=== PATIENT | female | born 1935 | race Caucasian/White ===

== ENCOUNTER 2017-11-18 09:00 | Inpatient (IN) | payer MEDICARE, OTHER ==
[2017-11-18 10:46] LABS: BASO % 0 % (0-3); EOS # 0.1 x10^3/uL (0.0-0.7); EOS % 0 % (0-3); HEMATOCRIT 23.5 % (36.0-47.0); HEMOGLOBIN 7.2 g/dL (12.0-15.5); LYMPH # 24.4 x10^3/uL (1.0-4.8); LYMPH % 82 % (24-48); MEAN CORPUSCULAR HEMOGLOBIN 29 pg (25-35); MEAN CORPUSCULAR HGB CONC 31 g/dL (31-37); MEAN CORPUSCULAR VOLUME 96 fL (79-100); MONO # 0.6 x10^3/uL (0.0-1.1); MONO % 2 % (0-9); NEUT # 4.7 x10^3uL (1.8-7.7); NEUT % 16 % (31-73); PLATELET COUNT 193 x10^3/uL (140-400); RED BLOOD COUNT 2.46 x10^6/uL (3.50-5.40); RED CELL DISTRIBUTION WIDTH 17.2 % (11.5-14.5); WHITE BLOOD COUNT 29.8 x10^3/uL (4.0-11.0)
[2017-11-18 10:52] LABS: ADD MAN DIFF? YES
[2017-11-18 10:55] LABS: ANION GAP 8 (6-14); BLOOD UREA NITROGEN 42 mg/dL (7-20); CALCIUM 9.2 mg/dL (8.5-10.1); CARBON DIOXIDE 36 mmol/L (21-32); CHLORIDE 97 mmol/L (98-107); CREATININE 5.8 mg/dL (0.6-1.0); GLUCOSE 134 mg/dL (70-99); POTASSIUM 4.3 mmol/L (3.5-5.1); SODIUM 141 mmol/L (136-145)
[2017-11-18 11:00] LABS: ALBUMIN 3.3 g/dL (3.4-5.0); ALK PHOS 49 U/L (46-116); ALT (SGPT) 12 U/L (14-59); AST (SGOT) 15 U/L (15-37); DIRECT BILIRUBIN 0.2 mg/dL (0.0-0.2); TOTAL PROTEIN 6.6 g/dL (6.4-8.2)
[2017-11-18] MEDS ORDERED: ONDANSETRON PF 4 MG/2 ML VIAL. IV (11:45)
[2017-11-18] MEDS ORDERED: ACETAMINOPHEN 500 MG TABLET PO ×2 (11:45→13:15)
[2017-11-18 12:07] LABS: % EOS 1 % (0-5); % LYMPHS 73 % (24-48); % SEGS 26 % (35-66)
[2017-11-18 12:08] LABS: PLT ESTIMATE ADEQUATE (ADEQUATE)
[2017-11-18 12:09] LABS: ANISOCYTOSIS PRESENT; POIKILOCYTOSIS PRESENT
[2017-11-18] MEDS: FOLIC/VIT B COMP W-C (RENAL) TABLET. PO (12:30)
[2017-11-18 12:32] LABS: INR 1.5 (0.8-1.1); PROTHROMBIN TIME PATIENT 17.5 SEC (11.7-14.0)
[2017-11-18] MEDS ORDERED: IV NORMAL SALINE 1000ML BAG 1,000 ML IV (13:00)
[2017-11-18] MEDS ORDERED: ALBUMIN HUMAN 25% 200 ML IV (13:00)
[2017-11-18] MEDS ORDERED: DIALYSIS PATIENT. MC ×2 (13:15)
[2017-11-18] MEDS ORDERED: diphenhydrAMINE 50 MG/ML VIAL IV ×2 (13:15)
[2017-11-18 15:26] LABS: IMMEDIATE SPIN CROSSMATCH 1 1
[2017-11-18] MEDS: PANTOPRAZOLE 40 MG TABLET.DR. PO (18:27)
[2017-11-18] MEDS: TORSEMIDE 20 MG TABLET. PO (18:27)
[2017-11-18] MEDS: DIGOXIN 250 MCG TABLET. PO (18:27)
[2017-11-18] MEDS: ASPIRIN CHEWABLE 81 MG TABLET. PO (18:27)
[2017-11-18] MEDS: LISINOPRIL 10 MG TABLET PO (18:28)
[2017-11-18] MEDS: CARVEDILOL 3.125 MG TABLET. PO (18:28)
[2017-11-18] MEDS: CALCIUM ACETATE 667 MG CAPSULE PO (18:29)
[2017-11-18] MEDS: WARFARIN 7.5 MG TABLET. PO (18:29)
[2017-11-18] MEDS: ATORVASTATIN CALCIUM 20 MG TABLET PO (21:02)
[2017-11-19 04:35] LABS: ADD MAN DIFF? NO
[2017-11-19 04:57] LABS: BASO % 0 % (0-3); EOS # 0.2 x10^3/uL (0.0-0.7); EOS % 1 % (0-3); HEMATOCRIT 24.3 % (36.0-47.0); HEMOGLOBIN 7.5 g/dL (12.0-15.5); LYMPH # 19.6 x10^3/uL (1.0-4.8); LYMPH % 81 % (24-48); MEAN CORPUSCULAR HEMOGLOBIN 29 pg (25-35); MEAN CORPUSCULAR HGB CONC 31 g/dL (31-37); MEAN CORPUSCULAR VOLUME 95 fL (79-100); MONO # 0.5 x10^3/uL (0.0-1.1); MONO % 2 % (0-9); NEUT # 3.9 x10^3uL (1.8-7.7); NEUT % 16 % (31-73); PLATELET COUNT 173 x10^3/uL (140-400); RED BLOOD COUNT 2.56 x10^6/uL (3.50-5.40); RED CELL DISTRIBUTION WIDTH 16.5 % (11.5-14.5); WHITE BLOOD COUNT 24.2 x10^3/uL (4.0-11.0)
[2017-11-19 05:04] LABS: INR 1.5 (0.8-1.1)
[2017-11-19 06:02] LABS: ANION GAP 8 (6-14); BLOOD UREA NITROGEN 21 mg/dL (7-20); CALCIUM 8.7 mg/dL (8.5-10.1); CARBON DIOXIDE 32 mmol/L (21-32); CHLORIDE 102 mmol/L (98-107); CREATININE 3.6 mg/dL (0.6-1.0); GFR 12.2; GLUCOSE 99 mg/dL (70-99); SODIUM 142 mmol/L (136-145)
[2017-11-19 07:30] LABS: HEP B SURFACE ABDY Reactive (.); HEP B SURFACE AG Negative (Negative)
[2017-11-19] MEDS: ASPIRIN CHEWABLE 81 MG TABLET. PO (09:07)
[2017-11-19] MEDS: LISINOPRIL 10 MG TABLET PO (09:07)
[2017-11-19] MEDS: CARVEDILOL 3.125 MG TABLET. PO (09:08)
[2017-11-19] MEDS: PANTOPRAZOLE 40 MG TABLET.DR. PO (09:08)
[2017-11-19] MEDS: CALCIUM ACETATE 667 MG CAPSULE PO (09:08)
[2017-11-19] MEDS: TORSEMIDE 20 MG TABLET. PO (09:08)
[2017-11-19] MEDS: DIGOXIN 250 MCG TABLET. PO (09:08)
== END 2017-11-19 11:25 | disposition home or self-care (01) | DRG 314 ==
LOC: ER 09:00 → 5 SOUTH 10:20
PROC: 30233N1 Transfusion of Nonautologous Red Blood Cells into Peripheral Vein, Percutaneous Approach (ICD-10-PCS; principal; 2017-11-18)
DX: T82.838A Hemorrhage due to vascular prosthetic devices, implants and grafts, initial encounter (principal); N18.6 End stage renal disease; I12.0 Hypertensive chronic kidney disease with stage 5 chronic kidney disease or end stage renal disease; D64.9 Anemia, unspecified; D62 Acute posthemorrhagic anemia; Z85.6 Personal history of leukemia; Z86.73 Personal history of transient ischemic attack (TIA), and cerebral infarction without residual deficits; Z99.2 Dependence on renal dialysis; Z88.8 Allergy status to other drugs, medicaments and biological substances; Z85.9 Personal history of malignant neoplasm, unspecified
CPT/HCPCS: 36415; 80048; 80076; 85007; 85025; 85610; 86705; 86706; 86850; 86900; 86901; 86920; 87340; 93971; P9016

== ENCOUNTER 2018-05-27 12:18 | Inpatient (IN) | payer MEDICARE, OTHER ==
[2018-05-27 13:25] LABS: ADD MAN DIFF? NO
[2018-05-27 13:30] LABS: BASO # 0.1 x10^3/uL (0.0-0.2); BASO % 0 % (0-3); EOS # 0.2 x10^3/uL (0.0-0.7); EOS % 1 % (0-3); LYMPH # 21.5 x10^3/uL (1.0-4.8); LYMPH % 89 % (24-48); MEAN CORPUSCULAR HEMOGLOBIN 32 pg (25-35); MEAN CORPUSCULAR HGB CONC 31 g/dL (31-37); MEAN CORPUSCULAR VOLUME 101 fL (79-100); MONO # 0.3 x10^3/uL (0.0-1.1); MONO % 1 % (0-9); NEUT # 2.2 x10^3uL (1.8-7.7); NEUT % 9 % (31-73); PLATELET COUNT 130 x10^3/uL (140-400); RED BLOOD COUNT 1.83 x10^6/uL (3.50-5.40); RED CELL DISTRIBUTION WIDTH 21.8 % (11.5-14.5); WHITE BLOOD COUNT 24.2 x10^3/uL (4.0-11.0)
[2018-05-27 13:37] LABS: HEMATOCRIT 18.5 % (36.0-47.0); HEMOGLOBIN 5.8 g/dL (12.0-15.5)
[2018-05-27 13:44] LABS: ANION GAP 10 (6-14); BLOOD UREA NITROGEN 34 mg/dL (7-20); BUN/CREATININE RATIO 7 (6-20); CALCIUM 8.2 mg/dL (8.5-10.1); CARBON DIOXIDE 32 mmol/L (21-32); CHLORIDE 97 mmol/L (98-107); CREATININE 5.1 mg/dL (0.6-1.0); GFR 8.1; GLUCOSE 148 mg/dL (70-99); POTASSIUM 3.9 mmol/L (3.5-5.1); SODIUM 139 mmol/L (136-145)
[2018-05-27 13:50] LABS: ALBUMIN 3.4 g/dL (3.4-5.0); ALBUMIN/GLOBULIN RATIO 1.3 (1.0-1.7); ALK PHOS 46 U/L (46-116); ALT (SGPT) 16 U/L (14-59); AST (SGOT) 13 U/L (15-37); TOTAL BILIRUBIN 0.4 mg/dL (0.2-1.0); TOTAL PROTEIN 6.1 g/dL (6.4-8.2)
[2018-05-27 13:54] LABS: TROPONINI < 0.017 ng/mL (0.000-0.055)
[2018-05-27] MEDS ORDERED: ACETAMINOPHEN 325 MG TABLET. PO (14:30)
[2018-05-27] MEDS ORDERED: ONDANSETRON PF 4 MG/2 ML VIAL. IV (14:30)
[2018-05-27] MEDS ORDERED: fentaNYL PF VIAL 100 MCG/2 ML VIAL IV (14:30)
[2018-05-27 14:32] LABS: % LYMPHS 89 % (24-48); % SEGS 11 % (35-66)
[2018-05-27 14:34] LABS: ANISOCYTOSIS MOD; PLT ESTIMATE ADEQUATE (ADEQUATE); POLYCHROMASIA SLIGHT
[2018-05-27 17:16] LABS: IMMEDIATE SPIN CROSSMATCH 1
[2018-05-27 23:15] LABS: HEMOGLOBIN 6.4 g/dL (12.0-15.5)
[2018-05-28 00:47] LABS: IMMEDIATE SPIN CROSSMATCH 1 2
[2018-05-28 08:00] LABS: HEMOGLOBIN 7.1 g/dL (12.0-15.5)
[2018-05-28 09:21] LABS: % SAT IRON 18 % (15-34); IRON,SERUM 41 ug/dL (50-170)
[2018-05-28 09:34] LABS: FERRITIN 577 ng/mL (8-252)
[2018-05-28 09:41] LABS: RETIC COUNT 1.8 % (0.5-2.5)
[2018-05-29 13:30] LABS: VITAMIN-B12 293 pg/mL (247-911)
[2018-05-29 13:31] LABS: FOLATE 18.21 ng/ml (3.2-20.0)
== END 2018-05-28 12:30 | disposition home or self-care (01) | DRG 291 ==
LOC: 5 SOUTH 15:41 → ER 12:18 → 5 SOUTH 15:36
PROC: 30233N1 Transfusion of Nonautologous Red Blood Cells into Peripheral Vein, Percutaneous Approach (ICD-10-PCS; principal; 2018-05-28)
DX: I13.2 Hypertensive heart and chronic kidney disease with heart failure and with stage 5 chronic kidney disease, or end stage renal disease (principal); N18.6 End stage renal disease; C91.10 Chronic lymphocytic leukemia of B-cell type not having achieved remission; Z99.2 Dependence on renal dialysis; I50.9 Heart failure, unspecified; I48.91 Unspecified atrial fibrillation; E78.5 Hyperlipidemia, unspecified; Z82.49 Family history of ischemic heart disease and other diseases of the circulatory system; D63.1 Anemia in chronic kidney disease; Z86.73 Personal history of transient ischemic attack (TIA), and cerebral infarction without residual deficits; D47.2 Monoclonal gammopathy; D69.6 Thrombocytopenia, unspecified; E78.00 Pure hypercholesterolemia, unspecified; Z90.710 Acquired absence of both cervix and uterus
CPT/HCPCS: 36415; 71045; 80053; 82607; 82728; 82746; 83540; 83550; 84484; 85007; 85018; 85025; 85045; 86850; 86900; 86901; 86920; 93005; 99285; 99285-25; P9016

== ENCOUNTER 2019-07-27 19:14 | Emergency (ER) | payer MEDICARE, OTHER ==
[~2019-07-27] VITALS: Ht 157.5 cm; Wt 65.8 kg
[~2019-07-27 19:14] MED LIST: ASPI-630 PO; ATOR20TA PO; CALC667T4 PO; CARV3.12 PO; DIGO250T PO; FOLI1CAP11 PO; LISI10TA2 PO; OMEP20TA8 PO; TORS20TA2 PO; WARF1TAB69 PO; WARF4TAB68 PO; WARF6TAB47 PO
[2019-07-27] MEDS ORDERED: dilTIAZem IV PUSH 25 MG/5 ML VIAL IVP ONE (20:00)
[2019-07-27] MEDS ORDERED: IPRATRPIUM/ALBUTEROL 0.5/2.5MG 3 ML NEBU. NEB SCH (20:00)
[2019-07-27 20:11] LABS: BASO # 0.1 x10^3/uL (0.0-0.2); BASO % 0 % (0-3); EOS # 0.2 x10^3/uL (0.0-0.7); EOS % 1 % (0-3); HEMATOCRIT 25.5 % (36.0-47.0); HEMOGLOBIN 7.7 g/dL (12.0-15.5); LYMPH # 30.2 x10^3/uL (1.0-4.8); LYMPH % 90 % (24-48); MEAN CORPUSCULAR HEMOGLOBIN 29 pg (25-35); MEAN CORPUSCULAR HGB CONC 30 g/dL (31-37); MEAN CORPUSCULAR VOLUME 96 fL (79-100); MONO # 0.6 x10^3/uL (0.0-1.1); MONO % 2 % (0-9); NEUT # 2.7 x10^3/uL (1.8-7.7); NEUT % 8 % (31-73); PLATELET COUNT 143 x10^3/uL (140-400); RED BLOOD COUNT 2.66 x10^6/uL (3.50-5.40); RED CELL DISTRIBUTION WIDTH 18.5 % (11.5-14.5); WHITE BLOOD COUNT 33.7 x10^3/uL (4.0-11.0)
--- NOTE | 2019-07-27 20:11 | RAD ---
Single view chest dated 07/27/2019. Comparison made to 05/27/2018. CLINICAL INDICATION: Cough and shortness of breath. FINDINGS: Single upright portable exam performed. Heart and mediastinal contours are stable. There is tortuosity of the thoracic aorta, unchanged. Lungs are somewhat hyperinflated but otherwise clear. No consolidation or pleural effusion. No pneumothorax. Degenerative change of the right shoulder joint with probable full-thickness chronic rotator cuff tear. IMPRESSION: No acute radiographic abnormality. Stable findings compared to 05/27/2018. Electronically signed by: Reji Pratt MD (07/27/2019 8:09 PM) [facility]
[2019-07-27 20:15] LABS: CALCIUM 8.9 mg/dL (8.5-10.1); CREATININE 3.6 mg/dL (0.6-1.0); GFR 12.1; POTASSIUM 4.1 mmol/L (3.5-5.1)
[2019-07-27] MEDS ORDERED: HYDROcodone/APAP 5/325MG 1 TAB TABLET PO PRN (20:15)
[2019-07-27] MEDS ORDERED: ACETAMINOPHEN 500 MG TABLET PO PRN (20:15)
[2019-07-27] MEDS ORDERED: diphenhydrAMINE HCL 25 MG CAPSULE PO PRN (20:15)
[2019-07-27] MEDS ORDERED: guaiFENesin DM 200MG/20MG 10 ML SYRUP PO PRN (20:15)
[2019-07-27 20:22] LABS: ALBUMIN 3.4 g/dL (3.4-5.0); MAGNESIUM 2.2 mg/dL (1.8-2.4); TOTAL BILIRUBIN 0.4 mg/dL (0.2-1.0); TOTAL PROTEIN 6.8 g/dL (6.4-8.2)
--- NOTE | 2019-07-27 20:22 | PDOC1 ---
History and Physical Date of Admission Date of Admission DATE: 07/27/19 TIME: 20:14 Identification/Chief Complaint Chief Complaint cough x 3 weeks, back hurts when she coughs,s ent by PCP office bec of CXR proven PNA Source Source: Caregiver, Chart review, Patient History of Present Illness History of Present Illness 84 YO FEMALE, wHO looks younger than stated age, accompanied by dtr who is an RN at DR Chandler's office (pt's PCP). She was sent in for CXR proven RLL PNA. Pt has been feeling sick x 3 weeks, productive cough,no fevers, denies soa, CXR shows the RLL PNA, Got doxy PO at PCP office, She is also no RVR a fib, known chronic a fib on warf with last INR at PCP 3. She follows with DR Simmons, on digoxin etc at home and is compliant She also is ESRD on HD MWF and got HD today SHe is non toxic appearing She also has CLL, known pt DR Crisostomo, baseline WBC is 37 or so, dtr tells me but at PCP it was 40s LAbs are still rolling WIll admit and do CAP coverage, control the RVR and resume hD sessions. Past Medical History Cardiovascular: AFIB, HTN, Hyperlipidemia Heme/Onc: Cancer, Other (CLL) Musculoskeletal: low back pain Renal/: Chronic renal failure Past Surgical History Past Surgical History: Other Family History Family History: No Significant Social History Smoke: No ALCOHOL: none Drugs: None Current Medications Current Medications Current Medications Diltiazem HCl (Cardizem Iv Push) 15 mg 1X ONCE IVP Last administered on 07/27/19at 20:02; Start 07/27/19 at 20:00; Stop 07/27/19 at 20:01; Status DC Ceftriaxone Sodium (Rocephin) 1 gm 1X ONCE IVP ; Start 07/27/19 at 20:15; Stop 07/27/19 at 20:16; Status UNV Diltiazem HCl 125 mg/Dextrose 125 ml @ 5 mls/hr 1X ONCE IV ; Start 07/27/19 at 20:15; Stop 07/28/19 at 21:14; Status UNV Albuterol/ Ipratropium (Duoneb) 3 ml RTQID NEB ; Start 07/28/19 at 08:00; Status UNV Acetaminophen (Tylenol) 500 mg PRN Q6HRS PRN PO MILD PAIN / TEMP; Start 07/27/19 at 20:15; Status UNV Benzonatate (Tessalon Perle) 100 mg QHE797 PO ; Start 07/27/19 at 21:00; Status UNV Guaifenesin (Robitussin Dm) 10 ml PRN Q6HRS PRN PO COUGH; Start 07/27/19 at 20:15; Status UNV Ceftriaxone Sodium (Rocephin) 1 gm Q24H IVP ; Start 07/27/19 at 20:15; Status UNV Azithromycin (Zithromax) 500 mg 1X ONCE PO ; Start 07/27/19 at 20:15; Stop 07/27/19 at 20:16; Status UNV Azithromycin (Zithromax) 250 mg DAILY PO ; Start 07/28/19 at 09:00; Status UNV Active Scripts Active Lipitor (Atorvastatin Calcium) 20 Mg Tablet 20 Mg PO HS Reported Coumadin (Warfarin Sodium) 4 Mg Tablet 2 Tab PO DAILY Torsemide 20 Mg Tablet 2 Tab PO DAILY Calcium Acetate 667 Mg Tablet 3 Tab PO BID Digoxin 250 Mcg Tablet 0.5 Tab PO DAILY Coreg (Carvedilol) 3.125 Mg Tablet 3.125 Mg PO BIDWMEALS Omeprazole 20 Mg Tablet.dr 20 Mg PO DAILY Allergies Allergies: Coded Allergies: ibuprofen (Verified Allergy, Severe, 09/14/16) ROS Review of System as per HPI, derrick cough and back pain, the rest 14 pt neg Physical Exam General: Alert, Oriented X3, Cooperative, No acute distress HEENT: Atraumatic, PERRLA, EOMI Lungs: Normal air movement, Other (equal air entry, no crackles or wheezing, but diminshed at bases, dullness ot percussion at Rt base derrick) Heart: S1S2, no thrills, no rubs, irregularly irregular Cardiovascular: S1, S2 Breasts: Normal, Rt breast nml w/o mass, Lt breast nml w/o mass, Nipples normal Abdomen: Normal bowel sounds, Soft, No tenderness, No hepatosplenomegaly, No masses Rectal Exam: not examined PELVIC: Nml ext genitalia Extremities: No clubbing, No cyanosis, No edema, Normal pulses, No tenderness/swelling Skin: No rashes, No breakdown, No significant lesion Neuro: Normal gait, Normal speech, Strength at 5/5 X4 ext, Normal tone, Sensation intact, Cranial nerves 3-12 NL, Reflexes 2+ Psych/Mental Status: Mental status NL, Mood NL Vitals Vitals Vital Signs Date Time Temp Pulse Resp B/P (MAP) Pulse Ox O2 Delivery O2 Flow Rate FiO2 07/27/19 20:02 112 101/58 07/27/19 19:16 98.4 22 96 Room Air 98.4 Labs Labs Laboratory Tests Test 07/27/19 19:48 White Blood Count 33.7 x10^3/uL (4.0-11.0) Red Blood Count 2.66 x10^6/uL (3.50-5.40) Hemoglobin 7.7 g/dL (12.0-15.5) Hematocrit 25.5 % (36.0-47.0) Mean Corpuscular Volume 96 fL (79-100) Mean Corpuscular Hemoglobin 29 pg (25-35) Mean Corpuscular Hemoglobin Concent 30 g/dL (31-37) Red Cell Distribution Width 18.5 % (11.5-14.5) Platelet Count 143 x10^3/uL (140-400) Neutrophils (%) (Auto) 8 % (31-73) Lymphocytes (%) (Auto) 90 % (24-48) Monocytes (%) (Auto) 2 % (0-9) Eosinophils (%) (Auto) 1 % (0-3) Basophils (%) (Auto) 0 % (0-3) Neutrophils # (Auto) 2.7 x10^3/uL (1.8-7.7) Lymphocytes # (Auto) 30.2 x10^3/uL (1.0-4.8) Monocytes # (Auto) 0.6 x10^3/uL (0.0-1.1) Eosinophils # (Auto) 0.2 x10^3/uL (0.0-0.7) Basophils # (Auto) 0.1 x10^3/uL (0.0-0.2) Laboratory Tests Test 07/27/19 19:48 White Blood Count 33.7 x10^3/uL (4.0-11.0) Red Blood Count 2.66 x10^6/uL (3.50-5.40) Hemoglobin 7.7 g/dL (12.0-15.5) Hematocrit 25.5 % (36.0-47.0) Mean Corpuscular Volume 96 fL (79-100) Mean Corpuscular Hemoglobin 29 pg (25-35) Mean Corpuscular Hemoglobin Concent 30 g/dL (31-37) Red Cell Distribution Width 18.5 % (11.5-14.5) Platelet Count 143 x10^3/uL (140-400) Neutrophils (%) (Auto) 8 % (31-73) Lymphocytes (%) (Auto) 90 % (24-48) Monocytes (%) (Auto) 2 % (0-9) Eosinophils (%) (Auto) 1 % (0-3) Basophils (%) (Auto) 0 % (0-3) Neutrophils # (Auto) 2.7 x10^3/uL (1.8-7.7) Lymphocytes # (Auto) 30.2 x10^3/uL (1.0-4.8) Monocytes # (Auto) 0.6 x10^3/uL (0.0-1.1) Eosinophils # (Auto) 0.2 x10^3/uL (0.0-0.7) Basophils # (Auto) 0.1 x10^3/uL (0.0-0.2) VTE Prophylaxis Ordered VTE Prophylaxis Devices: Yes VTE Pharmacological Prophylaxi: Yes Assessment/Plan Assessment/Plan CAP A fib RVR - hx chronic a fib on meds Therapeuric INR reported at the office ESDR On HD mWF AOCD CLL - baseline WBC 30s per dtr, last one was 40s at PCP in the background of active infection - known to dr crisostomo FULL CODE Acute on chronic back pain - hx back pain, trial lidoderm, coughing hurts her back - supprotive meds PLAN: CVC admit RAte control cardizem gtt prn, cards consult Resume home meds REnal HD diet HD per renal - renal consult CAp coverage and other supprotive meds, nebs, tylenol, robitussin etc NO need to consult heme onc for now FULL CODE Seen at ER Await as labs come out dw dtr at bedside Trial lidoerm patch, heating pad etc CHRISTA CRYSTAL MD Jul 27, 2019 20:22
[2019-07-27 20:26] LABS: PROTHROMBIN TIME PATIENT 41.5 SEC (11.7-14.0)
[2019-07-27 20:29] LABS: D-DIMER 0.35 ug/mlFEU (0.00-0.50)
[2019-07-27] MEDS ORDERED: cefTRIAXone IV Push 1 GM VIAL. IVP ONE (20:30)
[2019-07-27] MEDS ORDERED: AZITHROMYCIN 250 MG TABLET. PO ONE (20:30)
[2019-07-27] MEDS ORDERED: dilTIAZem INJ 125 MG in IV DEXTROSE 5% 100ML 100 ML IV PRN (20:30)
[2019-07-27 20:53] VITALS: BP 107/57
[2019-07-27] MEDS ORDERED: ATORVASTATIN CALCIUM 20 MG TABLET PO SCH (21:00)
[2019-07-27] MEDS ORDERED: BENZONATATE 100 MG CAPSULE. PO SCH (21:00)
[2019-07-27] MEDS ORDERED: PATCH REMOVAL. MC SCH (21:00)
[2019-07-27] MEDS ORDERED: BENZ100C PO (21:06)
[2019-07-27] MEDS ORDERED: AZIT250T PO (21:06)
--- NOTE | 2019-07-27 21:06 | PHYS DOC ---
Past Medical History Past Medical History: A-Fib, Cancer, CHF, High Cholesterol, Hypertension, Renal Failure, Other Additional Past Medical Histor: CLL Past Surgical History: Hysterectomy, Other Additional Past Surgical Histo: ALAN FISTULA Alcohol Use: Rarely Drug Use: None Adult General Chief Complaint Chief Complaint: I have pneumonia" HPI HPI Patient is a 84 year old female who presents with patient with complaining of pneumonia. Patient states she has had productive cough with clear sputum that gradually getting better. Patient had a chest x-ray at his primary care physician office today and was told that she has pneumonia in the emergency room IV antibiotic. She denies shortness of breath, fever and chills, chest pain, sick contact, generalized weakness. Patient [place] [address] that increased to 43,000 in blood test done yesterday by primary care physician. Patient has history of chronic renal failure on dialysis and dialyzes today. Patient also has history of atrial physician according and was told to decrease the dose of Coumadin because of elevation of INR in the blood test done yesterday. Review of Systems Review of Systems Constitutional: Denies fever or chills [] Eyes: Denies change in visual acuity, redness, or eye pain [] HENT: Denies nasal congestion or sore throat [] Respiratory: Denies shortness of breath reports cough [] Cardiovascular: No additional information not addressed in HPI [] GI: Denies abdominal pain, nausea, vomiting, bloody stools or diarrhea [] : Denies dysuria or hematuria [] Musculoskeletal: Denies back pain or joint pain [] Integument: Denies rash or skin lesions [] Neurologic: Denies headache, focal weakness or sensory changes [] Endocrine: Denies polyuria or polydipsia [] All other systems were reviewed and found to be within normal limits, except as documented in this note. Current Medications Current Medications Current Medications Medications (Trade) Dose Ordered Sig/Kiara Start Time Stop Time Status Last Admin Dose Admin Acetaminophen (Tylenol) 500 mg PRN Q6HRS PRN 07/27/19 20:15 07/27/19 21:25 DC Acetaminophen/ Hydrocodone Bitart (Lortab 5/325) 1 tab PRN Q4HRS PRN 07/27/19 20:15 07/27/19 21:25 DC Albuterol/ Ipratropium (Duoneb) 3 ml RTQID 9/27/19 20:00 07/27/19 21:25 DC Atorvastatin Calcium (Lipitor) 20 mg HS 07/27/19 21:00 07/27/19 21:25 DC Azithromycin (Zithromax) 250 mg DAILY 07/28/19 09:00 07/27/19 21:25 DC Benzonatate (Tessalon Perle) 100 mg [id number] 07/27/19 21:00 07/27/19 21:25 DC Calcium Acetate (Phoslo) 2,001 mg TIDWMEALS 07/28/19 08:00 07/27/19 21:25 DC Carvedilol (Coreg) 3.125 mg BIDWMEALS 07/28/19 08:00 07/27/19 21:25 DC Ceftriaxone Sodium (Rocephin) 1 gm Q24H 07/28/19 21:00 07/27/19 21:25 DC Digoxin (Lanoxin) 125 mcg DAILY 07/28/19 09:00 07/27/19 21:25 DC Diltiazem HCl (Cardizem Iv Push) 15 mg 1X ONCE 07/27/19 20:00 07/27/19 20:01 DC 07/27/19 20:02 15 MG Diltiazem HCl 125 mg/Dextrose 125 ml @ 5 mls/hr CONT PRN 07/27/19 20:30 07/27/19 21:25 DC Diphenhydramine HCl (Benadryl) 25 mg PRN QHS PRN 07/27/19 20:15 07/27/19 21:25 DC Guaifenesin (Robitussin Dm) 10 ml PRN Q6HRS PRN 07/27/19 20:15 07/27/19 21:25 DC Lidocaine (Lidoderm) 1 patch DAILY 07/28/19 09:00 07/27/19 21:25 DC Miscellaneous (Lidoderm Patch Removal) 1 ea QHS 07/27/19 21:00 07/27/19 21:25 DC Pantoprazole Sodium (Protonix) 40 mg DAILYAC 07/28/19 07:30 07/27/19 21:25 DC Torsemide (Demadex) 40 mg DAILY 07/28/19 09:00 07/27/19 21:25 DC Warfarin Sodium (Coumadin Per Pharmacy) 1 each PRN DAILY PRN 07/27/19 21:15 07/27/19 21:25 DC Warfarin Sodium (Coumadin) 8 mg DAILY 07/28/19 09:00 UNV Allergies Allergies Allergies Coded Allergies Type Severity Reaction Last Updated Verified ibuprofen Allergy Severe 09/14/16 Yes Physical Exam Physical Exam Constitutional: Well developed, well nourished, no distress, non-toxic appearance. [] HENT: Normocephalic, atraumatic. Eyes: PERRLA, EOMI, conjunctiva normal, no discharge. [] Neck: Normal range of motion, no tenderness, supple, no stridor. [] Cardiovascular: Irregularly irregular rhythm with tachycardia, systolic murmur [] Lungs & Thorax: Bilateral breath sounds clear to auscultation [] Abdomen: Bowel sounds normal, soft, no tenderness, no masses, no pulsatile masses. [] Skin: Warm, dry, no erythema, no rash. [] Back: No tenderness, no CVA tenderness. [] Extremities: No tenderness, no cyanosis, no clubbing, ROM intact, no edema. [] Neurologic: Alert and oriented X 3, no focal deficits noted. [] Psychologic: Affect normal, judgement normal, mood normal. [] Current Patient Data Vital Signs Vital Signs Date Time Temp Pulse Resp B/P (MAP) Pulse Ox O2 Delivery O2 Flow Rate FiO2 07/27/19 20:53 92 22 107/57 (74) 92 Room Air 07/27/19 19:16 98.4 98.4 Lab Values Laboratory Tests Test 07/27/19 19:48 White Blood Count 33.7 x10^3/uL (4.0-11.0) H Red Blood Count 2.66 x10^6/uL (3.50-5.40) L Hemoglobin 7.7 g/dL (12.0-15.5) L Hematocrit 25.5 % (36.0-47.0) L Mean Corpuscular Volume 96 fL (79-100) Mean Corpuscular Hemoglobin 29 pg (25-35) Mean Corpuscular Hemoglobin Concent 30 g/dL (31-37) L Red Cell Distribution Width 18.5 % (11.5-14.5) H Platelet Count 143 x10^3/uL (140-400) Neutrophils (%) (Auto) 8 % (31-73) L Lymphocytes (%) (Auto) 90 % (24-48) H Monocytes (%) (Auto) 2 % (0-9) Eosinophils (%) (Auto) 1 % (0-3) Basophils (%) (Auto) 0 % (0-3) Neutrophils # (Auto) 2.7 x10^3/uL (1.8-7.7) Lymphocytes # (Auto) 30.2 x10^3/uL (1.0-4.8) H Monocytes # (Auto) 0.6 x10^3/uL (0.0-1.1) Eosinophils # (Auto) 0.2 x10^3/uL (0.0-0.7) Basophils # (Auto) 0.1 x10^3/uL (0.0-0.2) Segmented Neutrophils % 5 % (35-66) L Lymphocytes % 94 % (24-48) H Basophils % 1 % (0-3) Platelet Estimate Adequate (ADEQUATE) Prothrombin Time 41.5 SEC (11.7-14.0) H Prothrombin Time INR 4.3 (0.8-1.1) H D-Dimer (Makayla) 0.35 ug/mlFEU (0.00-0.50) Sodium Level 139 mmol/L (136-145) Potassium Level 4.1 mmol/L (3.5-5.1) Chloride Level 100 mmol/L (98-107) Carbon Dioxide Level 31 mmol/L (21-32) Anion Gap 8 (6-14) Blood Urea Nitrogen 22 mg/dL (7-20) H Creatinine 3.6 mg/dL (0.6-1.0) H Estimated GFR (Cockcroft-Gault) 12.1 BUN/Creatinine Ratio 6 (6-20) Glucose Level 187 mg/dL (70-99) H Lactic Acid Level 2.1 mmol/L (0.4-2.0) H Calcium Level 8.9 mg/dL (8.5-10.1) Magnesium Level 2.2 mg/dL (1.8-2.4) Total Bilirubin 0.4 mg/dL (0.2-1.0) Aspartate Amino Transferase (AST) 18 U/L (15-37) Alanine Aminotransferase (ALT) 11 U/L (14-59) L Alkaline Phosphatase 69 U/L (46-116) Creatine Kinase 29 U/L (26-192) Troponin I Quantitative < 0.017 ng/mL (0.000-0.055) OZ-Tob-R-Type Natriuretic Peptide > 55756 pg/mL (0-449) H Total Protein 6.8 g/dL (6.4-8.2) Albumin 3.4 g/dL (3.4-5.0) Albumin/Globulin Ratio 1.0 (1.0-1.7) Lipase 227 U/L (73-393) Laboratory Tests 07/27/19 19:48 Laboratory Tests 07/27/19 19:48 EKG EKG EKG interpreted by me. EKG at 195 showed atrial fibrillation at rate of 95, low-voltage QRS, poor R-wave progress in anteroseptal leads, no acute ST and T- wave elevation Radiology/Procedures Radiology/Procedures [][facility] [address] [place] [address] IMAGING REPORT Signed PATIENT: PRUDENCIO CARPENTER ACCOUNT: [id number] : 1935 LOCATION: ER AGE: 84 SEX: F EXAM STATUS: REG ER ORD. PHYSICIAN: CHEVY EDWARDS MD REASON: cough and shortness of breath PROCEDURE: PORTABLE CHEST 1V Single view chest dated 07/27/2019. Comparison made to 05/27/2018. CLINICAL INDICATION: Cough and shortness of breath. FINDINGS: Single upright portable exam performed. Heart and mediastinal contours are stable. There is tortuosity of the thoracic aorta, unchanged. Lungs are somewhat hyperinflated but otherwise clear. No consolidation or pleural effusion. No pneumothorax. Degenerative change of the right shoulder joint with probable full-thickness chronic rotator cuff tear. IMPRESSION: No acute radiographic abnormality. Stable findings compared to 05/27/2018. Electronically signed by: Reji Pratt MD (07/27/2019 8:09 PM) [facility] DICTATED and SIGNED BY: REJI PRATT MD DATE: 07/27/192008 Course & Med Decision Making Course & Med Decision Making Pertinent Labs and Imaging studies reviewed. (See chart for details) Evaluation of patient in ER showed 84-year-old female patient was sent from her primary care physician office because of pneumonia. Patient had unremarkable physical exam with O2 sat of 97% at room air in ER. Chest x-ray did not show infiltration. Labs showed white count of 32,000 with history of CLL with the same range of white count recently. Patient had INR of 4.3. Patient treated with IV Rocephin in ER but did not get IV fluid because of history of chronic renal failure on dialysis. Patient had elevation of lactic acid at 2.1 and I offered patient admission. Patient and her daughter refused admission and wanted to follow up with her primary care physician tomorrow and get another dose of Rocephin. Prescription for Zithromax and Tessalon was given and patient was advised to follow with her primary care physician tomorrow and return to ER if not getting better. Dragon Disclaimer Dragon Disclaimer This electronic medical record was generated, in whole or in part, using a voice recognition dictation system. Departure Departure Impression: Primary Impression: Atrial fibrillation with RVR Additional Impressions: Elevated lactic acid level Cough CLL (chronic lymphocytic leukemia) Chronic kidney disease with end stage renal failure on dialysis Coumadin toxicity Bronchitis Disposition: HOME, SELF-CARE (at 2103) Condition: IMPROVED Referrals: MELISSA CHAUDHARY MD (PCP) Patient Instructions: Atrial Fibrillation Additional Instructions: Do not take Coumadin tonight Follow-up with your primary care physician tomorrow Return to ER if not getting better Scripts Azithromycin (ZITHROMAX) 250 Mg Tablet 1 PKG PO UD for infection, #1 PKG Prov: CHEVY EDWARDS MD 07/27/19 Benzonatate (TESSALON PERLE) 100 Mg Capsule 1 CAP PO TID for cough, #21 CAP Prov: CHEVY EDWARDS MD 07/27/19 Problem Qualifiers Additional Impressions: Coumadin toxicity Encounter type: sequela Injury intent: accidental or unintentional Qualified Codes: T45.511S - Poisoning by anticoagulants, accidental (unintentional), sequela CHEVY EDWARDS MD Jul 27, 2019 21:06
[2019-07-27 22:49] LABS: % BASOS 1 % (0-3); % LYMPHS 94 % (24-48); % SEGS 5 % (35-66)
[2019-07-27 22:50] LABS: PLT ESTIMATE ADEQUATE (ADEQUATE)
[2019-07-28] MEDS ORDERED: PANTOPRAZOLE 40 MG TABLET.DR. PO SCH (07:30)
[2019-07-28] MEDS ORDERED: CARVEDILOL 3.125 MG TABLET. PO SCH (08:00)
[2019-07-28] MEDS ORDERED: CALCIUM ACETATE 667 MG CAPSULE PO SCH (08:00)
[2019-07-28] MEDS ORDERED: WARFARIN 4 MG TABLET. PO SCH (09:00)
[2019-07-28] MEDS ORDERED: DIGOXIN 125 MCG TABLET. PO SCH (09:00)
[2019-07-28] MEDS ORDERED: AZITHROMYCIN 250 MG TABLET. PO SCH (09:00)
[2019-07-28] MEDS ORDERED: TORSEMIDE 20 MG TABLET. PO SCH (09:00)
[2019-07-28] MEDS ORDERED: LIDOCAINE (700MG/PATCH) PATCH. TD SCH (09:00)
--- NOTE | 2019-07-28 10:17 | EKG ---
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
[2019-07-28] MEDS ORDERED: cefTRIAXone IV Push 1 GM VIAL. IVP SCH (21:00)
== END 2019-07-27 21:11 | disposition home or self-care (01) ==
LOC: ER 19:14
DX: T45.511A Poisoning by anticoagulants, accidental (unintentional), initial encounter (principal); I13.2 Hypertensive heart and chronic kidney disease with heart failure and with stage 5 chronic kidney disease, or end stage renal disease; I50.9 Heart failure, unspecified; N18.6 End stage renal disease; I48.2 Chronic atrial fibrillation; C91.10 Chronic lymphocytic leukemia of B-cell type not having achieved remission; J40 Bronchitis, not specified as acute or chronic; R74.0 Nonspecific elevation of levels of transaminase and lactic acid dehydrogenase [LDH]; Z99.2 Dependence on renal dialysis; E78.00 Pure hypercholesterolemia, unspecified; Z90.710 Acquired absence of both cervix and uterus; Z88.6 Allergy status to analgesic agent; Y92.89 Other specified places as the place of occurrence of the external cause
CPT/HCPCS: 36415; 71045; 80053; 82550; 83605; 83690; 83735; 83880; 84484; 85007; 85025; 85379; 85610; 87040; 93005; 96374; 96375; 99285; J0696; J3490; Q0144

== ENCOUNTER 2019-08-28 10:00 | Inpatient (IN) | payer MEDICARE, OTHER ==
[2019-08-28] VITALS (26 sets, daily range): BP systolic 84–115; BP diastolic 43–72
[~2019-08-28] VITALS: Ht 157.5 cm; Wt 71.9 kg
[2019-08-28] MEDS: SUCRALFATE 1 GM TABLET. PO SCH ×2 (07:30→17:39)
[~2019-08-28 10:00] MED LIST changes: +AZIT250T PO; +BENZ100C PO
[2019-08-28 10:50] LABS: BASO % 0 % (0-3); EOS # 0.1 x10^3/uL (0.0-0.7); EOS % 1 % (0-3); LYMPH # 8.9 x10^3/uL (1.0-4.8); LYMPH % 75 % (24-48); MEAN CORPUSCULAR HEMOGLOBIN 29 pg (25-35); MEAN CORPUSCULAR HGB CONC 30 g/dL (31-37); MEAN CORPUSCULAR VOLUME 94 fL (79-100); MONO # 0.4 x10^3/uL (0.0-1.1); MONO % 3 % (0-9); NEUT # 2.4 x10^3/uL (1.8-7.7); NEUT % 20 % (31-73); PLATELET COUNT 148 x10^3/uL (140-400); RED BLOOD COUNT 2.11 x10^6/uL (3.50-5.40); RED CELL DISTRIBUTION WIDTH 18.4 % (11.5-14.5); WHITE BLOOD COUNT 11.9 x10^3/uL (4.0-11.0)
[2019-08-28 10:54] LABS: HEMATOCRIT 19.8 % (36.0-47.0)
[2019-08-28 11:00] LABS: CALCIUM 8.5 mg/dL (8.5-10.1); GFR 8.3; POTASSIUM 5.2 mmol/L (3.5-5.1)
[2019-08-28] MEDS ORDERED: dilTIAZem IV PUSH 25 MG/5 ML VIAL IVP ONE (11:00)
[2019-08-28 11:06] LABS: ALBUMIN 3.1 g/dL (3.4-5.0); ALBUMIN/GLOBULIN RATIO 0.9 (1.0-1.7); TOTAL BILIRUBIN 0.3 mg/dL (0.2-1.0); TOTAL PROTEIN 6.5 g/dL (6.4-8.2)
--- NOTE | 2019-08-28 11:07 | RAD ---
CHEST PA LATERAL History: Cough. Recent pneumonia. Comparison: July 27, 2019 Findings: Linear bibasilar atelectasis or scarring, unchanged. Hyperinflation. Cardiomegaly, unchanged. No pneumothorax. No pleural effusion. No consolidation. Impression: 1. Linear bibasilar atelectasis or scarring, unchanged. 2. Hyperinflation. 3. Cardiomegaly, unchanged. Electronically signed by: Praveen Will DO (08/28/2019 11:04 AM) [facility]
--- NOTE | 2019-08-28 11:19 | PHYS DOC ---
Past Medical History Past Medical History: A-Fib, Cancer, CHF, High Cholesterol, Hypertension, Renal Failure, Other Additional Past Medical Histor: CLL Past Surgical History: Hysterectomy, Other Additional Past Surgical Histo: ALAN FISTULA Alcohol Use: Rarely Drug Use: None Adult General Chief Complaint Chief Complaint: ABNORMAL LABS HPI HPI Patient is an 84-year-old female who presents with report of abnormal INR. Patient's primary provider had checked an INR yesterday and called patient this morning to tell her that INR was greater than 10. Patient has also been having some increasing fatigue and mild shortness of breath with exertion. Patient reportedly has history of significant anemia requiring transfusion. Patient is also on dialysis and next scheduled dialysis is tomorrow morning. She denies any chest pain or shortness of breath at rest.[] Review of Systems Review of Systems Constitutional: Denies fever or chills [] Respiratory: Complains of cough and exertional shortness of breath [] Cardiovascular: No additional information not addressed in HPI [] GI: Denies abdominal pain, nausea, vomiting or diarrhea [] Integument: Denies rash or skin lesions [] Neurologic: Denies headache, focal weakness or sensory changes [] All other systems were reviewed and found to be within normal limits, except as documented in this note. Current Medications Current Medications Current Medications Medications (Trade) Dose Ordered Sig/[facility] Start Time Stop Time Status Last Admin Dose Admin Diltiazem HCl (Cardizem Iv Push) 10 mg 1X ONCE 08/28/19 11:00 08/28/19 11:01 DC 08/28/19 11:43 10 MG Diltiazem HCl 125 mg/Dextrose 125 ml @ 5 mls/hr 1X ONCE 08/28/19 11:30 08/29/19 12:29 08/28/19 11:43 5 MLS/HR Phytonadione (Mephyton Oral Soln) 10 mg 1X ONCE 08/28/19 11:30 08/28/19 11:31 DC 08/28/19 11:41 10 MG Allergies Allergies Allergies Coded Allergies Type Severity Reaction Last Updated Verified ibuprofen Allergy Severe 09/14/16 Yes Physical Exam Physical Exam Constitutional: Well developed, well nourished, no acute distress, non-toxic appearance. [] HENT: Normocephalic, atraumatic, bilateral external ears normal, oropharynx moist, no oral exudates, nose normal. [] Eyes: PERRLA, EOMI, conjunctiva pale, no discharge. [] Neck: Normal range of motion, no tenderness, supple. [] Cardiovascular: Tachycardic rate with irregular rhythm[] Lungs & Thorax: Fine rhonchi are noted bilaterally to auscultation [] Abdomen: Bowel sounds normal, soft, no tenderness. [] Skin: Warm, dry, no erythema, no rash. [] Extremities: No tenderness, no cyanosis, no clubbing, ROM intact. [] Neurologic: Alert and oriented X 3, no focal deficits noted. [] Current Patient Data Vital Signs Vital Signs Date Time Temp Pulse Resp B/P (MAP) Pulse Ox O2 Delivery O2 Flow Rate FiO2 08/28/19 12:37 98.0 107 18 99/55 98.0 08/28/19 11:48 100 Room Air Lab Values Laboratory Tests Test 08/28/19 10:32 White Blood Count 11.9 x10^3/uL (4.0-11.0) H Red Blood Count 2.11 x10^6/uL (3.50-5.40) L Hemoglobin 6.0 g/dL (12.0-15.5) *L Hematocrit 19.8 % (36.0-47.0) *L Mean Corpuscular Volume 94 fL (79-100) Mean Corpuscular Hemoglobin 29 pg (25-35) Mean Corpuscular Hemoglobin Concent 30 g/dL (31-37) L Red Cell Distribution Width 18.4 % (11.5-14.5) H Platelet Count 148 x10^3/uL (140-400) Neutrophils (%) (Auto) 20 % (31-73) L Lymphocytes (%) (Auto) 75 % (24-48) H Monocytes (%) (Auto) 3 % (0-9) Eosinophils (%) (Auto) 1 % (0-3) Basophils (%) (Auto) 0 % (0-3) Neutrophils # (Auto) 2.4 x10^3/uL (1.8-7.7) Lymphocytes # (Auto) 8.9 x10^3/uL (1.0-4.8) H Monocytes # (Auto) 0.4 x10^3/uL (0.0-1.1) Eosinophils # (Auto) 0.1 x10^3/uL (0.0-0.7) Basophils # (Auto) 0.0 x10^3/uL (0.0-0.2) Segmented Neutrophils % 17 % (35-66) L Band Neutrophils % 1 % (0-9) Lymphocytes % 80 % (24-48) H Eosinophils % 2 % (0-5) Smudge Cells Present Platelet Estimate Adequate (ADEQUATE) Prothrombin Time 99.0 SEC (11.7-14.0) H Prothrombin Time INR 12.8 (0.8-1.1) *H Sodium Level 139 mmol/L (136-145) Potassium Level 5.2 mmol/L (3.5-5.1) H Chloride Level 103 mmol/L (98-107) Carbon Dioxide Level 25 mmol/L (21-32) Anion Gap 11 (6-14) Blood Urea Nitrogen 50 mg/dL (7-20) H Creatinine 5.0 mg/dL (0.6-1.0) H Estimated GFR (Cockcroft-Gault) 8.3 BUN/Creatinine Ratio 10 (6-20) Glucose Level 134 mg/dL (70-99) H Calcium Level 8.5 mg/dL (8.5-10.1) Total Bilirubin 0.3 mg/dL (0.2-1.0) Aspartate Amino Transferase (AST) 15 U/L (15-37) Alanine Aminotransferase (ALT) 18 U/L (14-59) Alkaline Phosphatase 73 U/L (46-116) Total Protein 6.5 g/dL (6.4-8.2) Albumin 3.1 g/dL (3.4-5.0) L Albumin/Globulin Ratio 0.9 (1.0-1.7) L Laboratory Tests 08/28/19 10:32 Laboratory Tests 08/28/19 10:32 EKG EKG [] Interpretation Time: EKG demonstrates atrial fibrillation with rapid ventricular response of 126 Radiology/Procedures Radiology/Procedures [] Impressions: PROCEDURE: CHEST PA & LATERAL CHEST PA LATERAL History: Cough. Recent pneumonia. Comparison: July 27, 2019 Findings: Linear bibasilar atelectasis or scarring, unchanged. Hyperinflation. Cardiomegaly, unchanged. No pneumothorax. No pleural effusion. No consolidation. Impression: 1. Linear bibasilar atelectasis or scarring, unchanged. 2. Hyperinflation. 3. Cardiomegaly, unchanged. Electronically signed by: Praveen Will DO (08/28/2019 11:04 AM) [facility] Course & Med Decision Making Course & Med Decision Making Pertinent Labs and Imaging studies reviewed. (See chart for details) [] Dragon Disclaimer Dragon Disclaimer This electronic medical record was generated, in whole or in part, using a voice recognition dictation system. Departure Departure Impression: Primary Impression: Symptomatic anemia Additional Impressions: Atrial fibrillation with RVR Warfarin-induced coagulopathy Disposition: ADMITTED INPATIENT Admitting Physician: JOHN (Dr. Harley) Condition: IMPROVED Referrals: MELISSA CHAUDHARY MD (PCP) Problem Qualifiers ROBBI MÉNDEZ Jr., DO Aug 28, 2019 11:19
[2019-08-28] MEDS ORDERED: PHYTONADIONE 10 MG/ML ORAL SOLUTION. PO ONE (11:30)
[2019-08-28] MEDS ORDERED: dilTIAZem INJ 125 MG in IV DEXTROSE 5% 100ML 100 ML IV ONE (11:30)
[2019-08-28 12:18] LABS: % BANDS 1 % (0-9); % EOS 2 % (0-5); % LYMPHS 80 % (24-48); % SEGS 17 % (35-66); PLT ESTIMATE ADEQUATE (ADEQUATE); SMUDGE CELLS PRESENT
--- NOTE | 2019-08-28 13:12 | HP ---
ADMIT DATE: 08/28/2019 CHIEF COMPLAINT: Abnormal labs. HISTORY OF PRESENT ILLNESS: The patient is a pleasant 84-year-old female who is on Coumadin for AFib. I believe her primary care doctor checked her INR and it was 10. She was told to go to the ER. We checked, it is 12. I have discussed the case with the ER physician. We are going to give her a lot of vitamin K and fresh frozen plasma to see if we can get this reversed. It should also be noted that she is on dialysis and we will be consulting Nephrology. PAST MEDICAL HISTORY: AFib; CHF; end-stage renal disease, on dialysis; hypertension; hyperlipidemia; CLL; left arm fistula; hysterectomy; pneumonia. ALLERGIES: IBUPROFEN. FAMILY HISTORY: Coronary artery disease. SOCIAL HISTORY: She does not drink, smoke or take drugs. I think she lives with her daughter. Her daughter is a PALLIATIVE CARE NURSE who is here and seems to be very good support for her. MEDICATIONS: Reviewed, please refer to the MRAD. REVIEW OF SYSTEMS: GENERAL: She complains of weakness. SKIN: No bruising, hair changes or rashes. EYES: No blurred, double or loss of vision. NOSE AND THROAT: No history of nosebleeds, hoarseness or sore throat. HEART: No history of palpitations, chest pain or shortness of breath on exertion. LUNGS: Denies cough, hemoptysis, wheezing or shortness of breath. GASTROINTESTINAL: Denies changes in appetite, nausea, vomiting, diarrhea or constipation. GENITOURINARY: No history of frequency, urgency, hesitancy or nocturia. NEUROLOGIC: Denies history of numbness, tingling, tremor or weakness. PSYCHIATRIC: No history of panic, anxiety or depression. ENDOCRINE: No history of heat or cold intolerance, polyuria or polydipsia. EXTREMITIES: Denies muscle weakness, joint pain, pain on walking or stiffness. PHYSICAL EXAMINATION: VITALS: Within normal limits and are stable. GENERAL: No apparent distress. Alert and oriented. HEENT: Head is normocephalic, atraumatic, pupils were equally round and reactive to light and accommodation. NECK: Supple, no JVD, no thyromegaly was noted. LUNGS: Clear to auscultation in all lung street without rhonchi or wheezing. HEART: RRR, S1, S2 present. Peripheral pulses intact, no obvious murmurs were noted. ABDOMEN: Soft, nontender. Positive bowel sounds no organomegaly, normal bowel sounds. EXTREMITIES: She has a large left arm fistula. NEUROLOGIC: Normal speech, normal tone. A & O x 3, moves all extremities, no obvious focal deficits. PSYCHIATRIC: Normal affect, normal mood. Stable. SKIN: No ulcerations or rashes, good skin turgor, no jaundice. VASCULAR: Good capillary refill, neurovascular bundle appears to be intact. LABORATORY DATA: Hemoglobin 6. INR is 12.8. ASSESSMENT AND PLAN: Coumadin toxicity, anemia in an elderly female who is on dialysis and has multiple comorbidities. Given her history of chronic lymphocytic leukemia, we are going to consult Dr. Richards, consult Dr. Stoll for dialysis management. Transfuse 2 units of packed red blood cells and 2 units of fresh frozen plasma and give her 10 of vitamin K. Trend hemoglobin, trend her INR. Frequent labs, PT, OT and home meds. Prognosis is guarded. JEWELS TRAN DO DR: ZEFERINO/ling JOB#: [id number] / [id number]
--- NOTE | 2019-08-28 14:07 | PDOC2 ---
MARIEL TURNER SENIOR EMBEDDED SOFTWARE ENGINEER 08/28/19 1406: CARDIAC CONSULT DATE OF CONSULT Date of Consult DATE: 08/28/19 TIME: 13:53 REASON FOR CONSULT Reason for Consult: AFIB RVR REFERRING PHYSICIAN Referring Physician: Khushi SOURCE Source: Chart review, Patient HISTORY OF PRESENT ILLNESS HISTORY OF PRESENT ILLNESS This is a pleasant 84 yo female admitted for complains of elevated INR with feeling fatigue and MORNEO. Reports that her MORENO and fatigue just started about 2 days ago. No chest pain, palpitation but has been feeling dizzy. No obvious blood or dark stools. She does not produce any more urine and on HD for ESRD. She had her INR checked yesterday and eventually noted to be high and was advised to come to ED. She has had significant anemia before and had multiple blood transfusion with other significant comorbid conditions such as CLL and monoclonal gammopathy. She also has chronic AFIB and is taking coumadin with past CVA as well. No known CAD. She was hemoccult positive before and opted out of doing colonoscopy but did have a good EGD. She was treated recently about 3 weeks ago with antibiotics due to pneumonia and unclear what antibiotics used but also her coumadin was eventually increased with her INR not in therapeutic range. She came to ED and her HR was fast and on AFIB RVR. She is now getting transfusion with significant anemia. PAST MEDICAL HISTORY Cardiovascular: AFIB, CAD (mild CAD last noted via [facility] 2007), HTN, Hyperlipidemia, Valve insufficiency (severeTR) Pulmonary: Pneumonia CENTRAL NERVOUS SYSTEM: CVA GI: GERD Heme/Onc: Anemia NOS, Cancer (CLL), Other (chronic coumadin therapy) Musculoskeletal: Osteoarthritis Rheumatologic: No pertinent hx Infectious disease: No pertinent hx ENT: No pertinent hx Renal/: Chronic renal failure (ESRD) Endocrine: No pertinent hx Dermatology: No pertinent hx PAST SURGICAL HISTORY Past Surgical History: Hysterectomy, Other (LUE dialysis fistula) FAMILY HISTORY Family History: Coronary Artery Disease SOCIAL HISTORY Smoke: No ALCOHOL: none Drugs: None Lives: with Family CURRENT MEDICATIONS CURRENT MEDICATIONS Current Medications Medications (Trade) Dose Ordered Sig/Kiara Route PRN Reason Start Time Stop Time Status Last Admin Dose Admin Diltiazem HCl (Cardizem Iv Push) 10 mg 1X ONCE IVP 08/28/19 11:00 08/28/19 11:01 DC 08/28/19 11:43 Phytonadione (Mephyton Oral Soln) 10 mg 1X ONCE PO 08/28/19 11:30 08/28/19 11:31 DC 08/28/19 11:41 Diltiazem HCl 125 mg/Dextrose 125 ml @ 5 mls/hr 1X ONCE IV 08/28/19 11:30 08/29/19 12:29 08/28/19 11:43 ALLERGIES ALLERGIES: Coded Allergies: ibuprofen (Verified Allergy, Severe, 09/14/16) ROS Review of System 14 point ROS evaluated with pertinent positives noted per HPI PHYSICAL EXAM General: Alert, Oriented X3, Cooperative, No acute distress HEENT: Atraumatic, Mucous membr. moist/pink Lungs: Clear to auscultation, Normal air movement Heart: Other (AFIB rate controlled; 4/6 systolic murmur to LLS border) Abdomen: Soft, No tenderness Extremities: No cyanosis, Other (2+ bilateral LE pitting edema) Skin: No breakdown, No significant lesion Neuro: Normal speech, Sensation intact Psych/Mental Status: Mental status NL, Mood NL MUSCULOSKELETAL: Osteoarthritic changes both hands VITALS/I&O VITALS/I&O: Vital Signs Date Time Temp Pulse Resp B/P (MAP) Pulse Ox O2 Delivery O2 Flow Rate FiO2 08/28/19 13:43 97.5 102 18 104/52 97.5 08/28/19 11:48 100 Room Air LABS Lab: Laboratory Tests Test 08/28/19 10:32 White Blood Count 11.9 x10^3/uL (4.0-11.0) H Red Blood Count 2.11 x10^6/uL (3.50-5.40) L Hemoglobin 6.0 g/dL (12.0-15.5) *L Hematocrit 19.8 % (36.0-47.0) *L Mean Corpuscular Volume 94 fL (79-100) Mean Corpuscular Hemoglobin 29 pg (25-35) Mean Corpuscular Hemoglobin Concent 30 g/dL (31-37) L Red Cell Distribution Width 18.4 % (11.5-14.5) H Platelet Count 148 x10^3/uL (140-400) Neutrophils (%) (Auto) 20 % (31-73) L Lymphocytes (%) (Auto) 75 % (24-48) H Monocytes (%) (Auto) 3 % (0-9) Eosinophils (%) (Auto) 1 % (0-3) Basophils (%) (Auto) 0 % (0-3) Neutrophils # (Auto) 2.4 x10^3/uL (1.8-7.7) Lymphocytes # (Auto) 8.9 x10^3/uL (1.0-4.8) H Monocytes # (Auto) 0.4 x10^3/uL (0.0-1.1) Eosinophils # (Auto) 0.1 x10^3/uL (0.0-0.7) Basophils # (Auto) 0.0 x10^3/uL (0.0-0.2) Segmented Neutrophils % 17 % (35-66) L Band Neutrophils % 1 % (0-9) Lymphocytes % 80 % (24-48) H Eosinophils % 2 % (0-5) Smudge Cells Present Platelet Estimate Adequate (ADEQUATE) Prothrombin Time 99.0 SEC (11.7-14.0) H Prothrombin Time INR 12.8 (0.8-1.1) *H Sodium Level 139 mmol/L (136-145) Potassium Level 5.2 mmol/L (3.5-5.1) H Chloride Level 103 mmol/L (98-107) Carbon Dioxide Level 25 mmol/L (21-32) Anion Gap 11 (6-14) Blood Urea Nitrogen 50 mg/dL (7-20) H Creatinine 5.0 mg/dL (0.6-1.0) H Estimated GFR (Cockcroft-Gault) 8.3 BUN/Creatinine Ratio 10 (6-20) Glucose Level 134 mg/dL (70-99) H Calcium Level 8.5 mg/dL (8.5-10.1) Total Bilirubin 0.3 mg/dL (0.2-1.0) Aspartate Amino Transferase (AST) 15 U/L (15-37) Alanine Aminotransferase (ALT) 18 U/L (14-59) Alkaline Phosphatase 73 U/L (46-116) Total Protein 6.5 g/dL (6.4-8.2) Albumin 3.1 g/dL (3.4-5.0) L Albumin/Globulin Ratio 0.9 (1.0-1.7) L Laboratory Tests 08/28/19 10:32 Laboratory Tests 08/28/19 10:32 ECHOCARDIOGRAM ECHOCARDIOGRAM TTE: 04/20/2019 Severely dilated atria Moderately dilated right ventricle Left ventricular ejection fraction = 55% Aortic valve sclerosis without stenosis Mitral Valve: Non-specific thickening. No stenosis. Mild regurgitation. There is mitral annular calcification. Moderate to severe TV regurgitation. Pulmonary artery pressure = 39mmHg No significant pericardial effusion On the prior study of 02/11/12, PAP was 46 mmHg ASSESSMENT/PLAN ASSESSMENT/PLAN 1. Anemia of chronic disease requiring transfusion: Hgb 6 2. Severe coagulopathy with coumadin therapy: INR at 12.8. Likely from recent antibiotics with increased coumadin 3. CLL stage0 and monoclonal gammopathy undetermined: stable per daughter from recent hemonc visit 4. AFIB RVR: tachy mainly due to anemia. Chronic per hx 5. Hx of CVA 6. HTN: controlled but marginal 7. ESRD 8. Severe TR/biatrial enlargement: notable for RVH, EKG no acute changes by comparison. 9. Hx of CAD. Recommendations 1. Fluid off loading per HD 2. Vitamin K given in ED. [place] currently will transition to metoprolol as she is on coreg at home once transfusion is complete. Was on digoxin and was discontinued in the past mainly due to ESRD. Dig PRN for persistent RVR. 3. Hold coumadin. Continue home statin. She also takes baby ASA at home. 4. Will need outpt referral for LAAO 5. Follow up with Dr. Simmons as an outpt in cardiology 6. TSH and TTE. 7. Will check hemoccult, pt did opt out of colonoscopy in the past BRYAN MCGILL MD 08/28/19 1610: CARDIAC CONSULT ASSESSMENT/PLAN ASSESSMENT/PLAN Patient seen and examined. Agree with above nurse practitioner note. 84-year-old woman coming into the hospital in the setting of anemia and coagulopathy with warfarin use. Multiple comorbidities as noted Continue resuscitation with blood products. No further cardiac testing necessary. Supportive care for now. Consider outpatient appendage occlusion. Discussed with her primary care physician Dr. Chandler. MARIEL TURNER APRN Aug 28, 2019 14:06 BRYAN MCGILL MD Aug 28, 2019 16:10
[2019-08-28] MEDS ORDERED: DIGOXIN IV 500 MCG/2 ML AMPUL. IV PRN (15:00)
[2019-08-28] MEDS: METOPROLOL TART IMMED RELEASE 25 MG TABLET. PO SCH ×2 (15:00→22:59)
--- NOTE | 2019-08-28 16:00 | EKG ---
[facility] [address] [place] [address] Test Date: 2019-08-28 Test Time: 10:22:59 Pat Name: PRUDENCIO CARPENTER Department: Room: 254 1 Gender: F Insurance Investigator: : [id number] Requested By: ROBBI MÉNDEZ Order Number: [id number] Reading MD: Ronnell Beard MD Measurements Intervals [place] Rate: 126 P: [place]: QRS: 78 QRSD: 76 T: 1 QT: 306 QTc: 450 Interpretive Statements PROBABLE AFIB WITH RVR RBBB CANNOT RULE OUT INFERIOR ISCHEMIA Electronically Signed On 09-10-2019 9:39:16 HIM TECH by Ronnell Beard MD
[2019-08-28] MEDS ORDERED: MIDO2.5T PO (16:15)
[2019-08-28] MEDS ORDERED: SUCR1TAB35 PO (16:16)
[2019-08-28] MEDS ORDERED: ASPI81TA50 PO (16:18)
[2019-08-28] MEDS ORDERED: ACETAMINOPHEN 500 MG TABLET PO PRN (17:15)
[2019-08-28] MEDS ORDERED: ONDANSETRON PF 4 MG/2 ML VIAL. IVP PRN (17:15)
[2019-08-28] MEDS ORDERED: ACETAMINOPHEN/CODEINE 300/30MG TABLET. PO PRN (17:15)
[2019-08-28] MEDS: CALCIUM ACETATE 667 MG CAPSULE PO SCH (17:39)
[2019-08-28 20:22] LABS: PROTHROMBIN TIME PATIENT 27.8 SEC (11.7-14.0)
[2019-08-28] MEDS: ATORVASTATIN CALCIUM 20 MG TABLET PO SCH (22:58)
[2019-08-29] VITALS (14 sets, daily range): BP systolic 84–116; BP diastolic 50–73
[2019-08-29 03:32] LABS: FECAL OB PT POSITIVE (NEG)
[2019-08-29 04:33] LABS: BASO % 0 % (0-3); EOS # 0.1 x10^3/uL (0.0-0.7); EOS % 1 % (0-3); HEMATOCRIT 23.1 % (36.0-47.0); HEMOGLOBIN 7.4 g/dL (12.0-15.5); LYMPH # 10.2 x10^3/uL (1.0-4.8); LYMPH % 76 % (24-48); MEAN CORPUSCULAR HEMOGLOBIN 29 pg (25-35); MEAN CORPUSCULAR HGB CONC 32 g/dL (31-37); MEAN CORPUSCULAR VOLUME 91 fL (79-100); MONO # 0.3 x10^3/uL (0.0-1.1); MONO % 2 % (0-9); NEUT # 2.8 x10^3/uL (1.8-7.7); NEUT % 21 % (31-73); PLATELET COUNT 122 x10^3/uL (140-400); RED BLOOD COUNT 2.54 x10^6/uL (3.50-5.40); RED CELL DISTRIBUTION WIDTH 16.9 % (11.5-14.5); WHITE BLOOD COUNT 13.5 x10^3/uL (4.0-11.0)
[2019-08-29 04:50] LABS: CALCIUM 8.6 mg/dL (8.5-10.1); CREATININE 5.8 mg/dL (0.6-1.0); POTASSIUM 5.9 mmol/L (3.5-5.1)
[2019-08-29] MEDS: PANTOPRAZOLE 40 MG TABLET.DR. PO SCH (07:30)
[2019-08-29] MEDS: SUCRALFATE 1 GM TABLET. PO SCH ×2 (07:30→16:49)
[2019-08-29] MEDS: METOPROLOL TART IMMED RELEASE 25 MG TABLET. PO SCH ×2 (08:05→20:34)
[2019-08-29] MEDS ORDERED: METOPROLOL TARTRATE 5 MG/5 ML VIAL. IVP ONE ×3 (08:22→13:30)
[2019-08-29] MEDS: CALCIUM ACETATE 667 MG CAPSULE PO SCH ×2 (08:24→17:28)
[2019-08-29] MEDS ORDERED: IV NORMAL SALINE 1000ML BAG 1,000 ML IV PRN ×2 (08:31)
[2019-08-29] MEDS ORDERED: DIALYSIS PATIENT. MC PRN (08:45)
[2019-08-29] MEDS ORDERED: diphenhydrAMINE 50 MG/ML VIAL IV PRN ×2 (08:45)
[2019-08-29] MEDS ORDERED: ACETAMINOPHEN 500 MG TABLET PO PRN (08:45)
--- NOTE | 2019-08-29 09:35 | PDOC2 ---
CONSULT Date of Consult Date of Consult DATE: 08/29/19 TIME: 09:27 Reason for consultation: Elevated INR Consult: Hematology oncology, Dr. Clara Leon History of present illness: She is an 84-year-old female followed by Dr. Richards for history of CLL that has never required treatment with A. fib on Coumadin admitted with elevated INR and anemia with a hemoglobin to 6, fecal occult blood test is positive, she has had an EGD in October 2018 showing esophagitis and g astritis and is on a PPI, she declined colonoscopy at that time, and hemoglobin is up to 7.4 after transfusion. She also had some FFP and vitamin K and last INR was 2.6 down from 12.8. Coagulopathy is chronic, due to Coumadin, but worsened acutely, possibly by antibiotic she had recently, improved with FFP and vitamin K, associated with fecal occult blood test positivity and anemia. 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 History of stroke Hypertension Hyperlipidemia Coronary artery disease Severe TR End-stage renal disease on hemodialysis Past surgical history: Hysterectomy Left upper extremity fistula EGD October 2018 Allergies: Ibuprofen Medications: See attached list Social history: No tobacco or alcohol, lives with family Family history: No CLL, does have coronary artery disease Review of systems: Other than the anemia she denies 10 point review of systems this morning, does have some lower extremity edema Physical exam: Vitals reviewed Gen.: Elderly female, resting in bed, well-developed in no acute distress HEENT: mucous membranes moist, head normocephalic atraumatic Neck: Supple, no lymphadenopathy Lymph nodes: No palpable lymphadenopathy neck or axilla Lungs: Breathing comfortably w/o respiratory distress Abdomen: Soft, nontender, nondistended Extremities: No cyanosis, does have LE edema bilat pitting pretib Skin: No obvious rashes or skin breakdown, some bruising Neuro: Alert and oriented 3 Psych: Normal mood and affect Lab reviewed: White count 13.5, with 10,000 lymphocytes, hemoglobin 7.4 up from 6.0, platelets 122, MCV of 91 INR 12.8 down to 2.6 Creatinine 5.8 Fecal occult blood test positive Rads reviewed: Chest x-ray with linear atelectasis/scarring, hyperinflation, cardiomegaly Case discussed with: Patient, records [facility], including labs and radiology, please see note for summary details Assessment and Plan: 84-year-old female with history of CLL and A. fib on Coumadin admitted with anemia and supratherapeutic INR INR: Has had FFP and vitamin K, INR 2.6 on last check, Coumadin is on hold, not actively bleeding though fecal occult blood test positive Fecal occult blood test positive: Would continue PPI, had gastritis and es ophagitis on EGD in October, defer consult to GI as needed per primary, she has declined colonoscopy in the past A. fib: Would agree with considering watchman procedure and stopping Coumadin, defer to her cardiology team, aspirin currently on hold Anemia: Improved after transfusion, will check MGUS labs, ferritin and iron, B12 and methylmalonic acid, and reticulocyte and haptoglobin CLL: Has not needed treatment, Dr. Richards will return in the morning renal failure: Continues dialysis Disposition: After continued clinical improvement Thank you kindly for this consultation, please don't hesitate to call with any further questions. Past Medical History Cardiovascular: AFIB, CAD (mild CAD last noted via [facility] 2007), HTN, Hyperlipidemia, Valve insufficiency (severeTR) Pulmonary: Pneumonia CENTRAL NERVOUS SYSTEM: CVA GI: GERD Heme/Onc: Anemia NOS, Cancer (CLL), Other (chronic coumadin therapy) Musculoskeletal: Osteoarthritis Rheumatologic: No pertinent hx Infectious disease: No pertinent hx ENT: No pertinent hx Renal/: Chronic renal failure (ESRD) Endocrine: No pertinent hx Dermatology: No pertinent hx Past Surgical History Past Surgical History: Hysterectomy, Other (LUE dialysis fistula) Family History Family History: Coronary Artery Disease Social History No ALCOHOL: none Drugs: None Lives: with Family Current Problem List Problem List Problems Medical Problems: (1) Symptomatic anemia Status: Acute (2) Warfarin-induced coagulopathy Status: Acute Current Medications Current Medications Current Medications Diltiazem HCl (Cardizem Iv Push) 10 mg 1X ONCE IVP Last administered on 08/28/19at 11:43; Start 08/28/19 at 11:00; Stop 08/28/19 at 11:01; Status DC Phytonadione (Mephyton Oral Soln) 10 mg 1X ONCE PO Last administered on 08/28/19at 11:41; Start 08/28/19 at 11:30; Stop 08/28/19 at 11:31; Status DC Diltiazem HCl 125 mg/Dextrose 125 ml @ 5 mls/hr 1X ONCE IV Last administered on 08/28/19at 11:43; Start 08/28/19 at 11:30; Stop 08/29/19 at 07:54; Status DC Metoprolol Tartrate (Lopressor) 25 mg BID PO Last administered on 08/29/19at 08:05; Start 08/28/19 at 15:00 Digoxin (Lanoxin) 250 mcg PRN DAILY PRN IV SEE COMMENTS; Start 08/28/19 at 15:00 Acetaminophen (Tylenol) 500 mg PRN Q6HRS PRN PO QURESHI / TEMP; Start 08/28/19 at 17:15 Acetaminophen/ Codeine Phosphate (Tylenol #3) 1 tab PRN Q6HRS PRN PO PAIN; Start 08/28/19 at 17:15 Ondansetron HCl (Zofran) 4 mg PRN Q6HRS PRN IVP NAUSEA/VOMITING Last administered on 08/29/19at 01:38; Start 08/28/19 at 17:15 Atorvastatin Calcium (Lipitor) 20 mg HS PO Last administered on 08/28/19at 22:58; Start 08/28/19 at 21:00 Sucralfate (Carafate) 1 gm BIDAC PO Last administered on 08/28/19at 17:39; Start 08/28/19 at 07:30 Calcium Acetate (Phoslo) 2,001 mg BIDWMEALS PO Last administered on 08/29/19at 08:24; Start 08/28/19 at 18:00 Pantoprazole Sodium (Protonix) 40 mg DAILYAC PO ; Start 08/29/19 at 07:30 Metoprolol Tartrate (Lopressor Vial) 5 mg 1X ONCE IVP Last administered on 08/29/19at 08:24; Start 08/29/19 at 08:30; Stop 08/29/19 at 08:31; Status DC Metoprolol Tartrate (Lopressor Vial) 5 mg STK-MED ONCE IVP ; Start 08/29/19 at 08:22; Stop 08/29/19 at 08:22; Status DC Sodium Chloride 1,000 ml @ 1,000 mls/hr Q1H PRN IV hypotension; Start 08/29/19 at 08:31; Stop 08/29/19 at 14:30 Acetaminophen (Tylenol) 500 mg 1X PRN PRN PO MILD PAIN / TEMP; Start 08/29/19 at 08:45; Stop 08/30/19 at 08:44 Diphenhydramine HCl (Benadryl) 25 mg 1X PRN PRN IV ITCHING; Start 08/29/19 at 08:45; Stop 08/30/19 at 08:44 Diphenhydramine HCl (Benadryl) 25 mg 1X PRN PRN IV ITCHING; Start 08/29/19 at 08:45; Stop 08/30/19 at 08:44 Sodium Chloride 1,000 ml @ 400 mls/hr Q2H30M PRN IV PATENCY; Start 08/29/19 at 08:31; Stop 08/29/19 at 20:30 Info (PHARMACY MONITORING -- do not chart) 1 each PRN DAILY PRN MC SEE COMME NTS; Start 08/29/19 at 08:45 Active Scripts Active Lipitor (Atorvastatin Calcium) 20 Mg Tablet 20 Mg PO HS Reported Aspir-Low (Aspirin) 81 Mg Tablet. 1 Tab PO DAILY Carafate (Sucralfate) 1 Gm Tablet 1 Tab PO BIDAC 30 Days Midodrine Hcl 2.5 Mg Tablet 2.5 Mg PO BID Coumadin (Warfarin Sodium) 4 Mg Tablet 2 Tab PO DAILY Calcium Acetate 667 Mg Tablet 3 Tab PO BID Coreg (Carvedilol) 3.125 Mg Tablet 3.125 Mg PO BIDWMEALS Omeprazole 20 Mg Tablet. 20 Mg PO DAILY Allergies Allergies: Coded Allergies: ibuprofen (Verified Allergy, Severe, 09/14/16) Vitals VITALS Vital Signs Date Time Temp Pulse Resp B/P (MAP) Pulse Ox O2 Delivery O2 Flow Rate FiO2 08/29/19 08:24 126 116/70 08/29/19 07:17 97.5 18 95 Room Air 97.5 Labs Labs Laboratory Tests Test 08/28/19 10:32 08/28/19 19:58 08/29/19 01:45 08/29/19 03:50 White Blood Count 11.9 x10^3/uL (4.0-11.0) 13.5 x10^3/uL (4.0-11.0) Red Blood Count 2.11 x10^6/uL (3.50-5.40) 2.53 x10^6/uL (3.50-5.70) Hemoglobin 6.0 g/dL (12.0-15.5) 6.6 g/dL (12.0-15.5) 7.4 g/dL (12.0-15.5) Hematocrit 19.8 % (36.0-47.0) 23.1 % (36.0-47.0) Mean Corpuscular Volume 94 fL (79-100) 91 fL (79-100) Mean Corpuscular Hemoglobin 29 pg (25-35) 29 pg (25-35) Mean Corpuscular Hemoglobin Concent 30 g/dL (31-37) 32 g/dL (31-37) Red Cell Distribution Width 18.4 % (11.5-14.5) 16.9 % (11.5-14.5) Platelet Count 148 x10^3/uL (140-400) 122 x10^3/uL (140-400) Neutrophils (%) (Auto) 20 % (31-73) 21 % (31-73) Lymphocytes (%) (Auto) 75 % (24-48) 76 % (24-48) Monocytes (%) (Auto) 3 % (0-9) 2 % (0-9) Eosinophils (%) (Auto) 1 % (0-3) 1 % (0-3) Basophils (%) (Auto) 0 % (0-3) 0 % (0-3) Neutrophils # (Auto) 2.4 x10^3/uL (1.8-7.7) 2.8 x10^3/uL (1.8-7.7) Lymphocytes # (Auto) 8.9 x10^3/uL (1.0-4.8) 10.2 x10^3/uL (1.0-4.8) Monocytes # (Auto) 0.4 x10^3/uL (0.0-1.1) 0.3 x10^3/uL (0.0-1.1) Eosinophils # (Auto) 0.1 x10^3/uL (0.0-0.7) 0.1 x10^3/uL (0.0-0.7) Basophils # (Auto) 0.0 x10^3/uL (0.0-0.2) 0.0 x10^3/uL (0.0-0.2) Segmented Neutrophils % 17 % (35-66) Band Neutrophils % 1 % (0-9) Lymphocytes % 80 % (24-48) Eosinophils % 2 % (0-5) Smudge Cells Present Platelet Estimate Adequate (ADEQUATE) Prothrombin Time 99.0 SEC (11.7-14.0) 27.8 SEC (11.7-14.0) Prothromb Time International Ratio 12.8 (0.8-1.1) 2.6 (0.8-1.1) Sodium Level 139 mmol/L (136-145) 138 mmol/L (136-145) Potassium Level 5.2 mmol/L (3.5-5.1) 5.9 mmol/L (3.5-5.1) Chloride Level 103 mmol/L (98-107) 101 mmol/L (98-107) Carbon Dioxide Level 25 mmol/L (21-32) 23 mmol/L (21-32) Anion Gap 11 (6-14) 14 (6-14) Blood Urea Nitrogen 50 mg/dL (7-20) 62 mg/dL (7-20) Creatinine 5.0 mg/dL (0.6-1.0) 5.8 mg/dL (0.6-1.0) Estimated GFR (Cockcroft-Gault) 8.3 7.0 BUN/Creatinine Ratio 10 (6-20) Glucose Level 134 mg/dL (70-99) 125 mg/dL (70-99) Calcium Level 8.5 mg/dL (8.5-10.1) 8.6 mg/dL (8.5-10.1) Total Bilirubin 0.3 mg/dL (0.2-1.0) Aspartate Amino Transf (AST/SGOT) 15 U/L (15-37) Alanine Aminotransferase (ALT/SGPT) 18 U/L (14-59) Alkaline Phosphatase 73 U/L (46-116) Total Protein 6.5 g/dL (6.4-8.2) Albumin 3.1 g/dL (3.4-5.0) Albumin/Globulin Ratio 0.9 (1.0-1.7) Thyroid Stimulating Hormone (TSH) 2.978 uIU/mL (0.358-3.74) Stool Occult Blood Positive (NEG) Absolute Reticulocyte Count 0.079 x10^6/uL (0.020-0.120) Percent Reticulocyte Count 3.1 % (0.5-2.3) Immature Reticulocyte Fraction 0.62 (0.20-0.60) Iron Level 97 ug/dL (50-170) Total Iron Binding Capacity 249 ug/dL (250-450) Iron Saturation 39 % (15-34) Ferritin 743 ng/mL (8-252) Laboratory Tests Test 08/28/19 10:32 08/28/19 19:58 08/29/19 01:45 08/29/19 03:50 White Blood Count 11.9 x10^3/uL (4.0-11.0) 13.5 x10^3/uL (4.0-11.0) Red Blood Count 2.11 x10^6/uL (3.50-5.40) 2.53 x10^6/uL (3.50-5.70) Hemoglobin 6.0 g/dL (12.0-15.5) 6.6 g/dL (12.0-15.5) 7.4 g/dL (12.0-15.5) Hematocrit 19.8 % (36.0-47.0) 23.1 % (36.0-47.0) Mean Corpuscular Volume 94 fL (79-100) 91 fL (79-100) Mean Corpuscular Hemoglobin 29 pg (25-35) 29 pg (25-35) Mean Corpuscular Hemoglobin Concent 30 g/dL (31-37) 32 g/dL (31-37) Red Cell Distribution Width 18.4 % (11.5-14.5) 16.9 % (11.5-14.5) Platelet Count 148 x10^3/uL (140-400) 122 x10^3/uL (140-400) Neutrophils (%) (Auto) 20 % (31-73) 21 % (31-73) Lymphocytes (%) (Auto) 75 % (24-48) 76 % (24-48) Monocytes (%) (Auto) 3 % (0-9) 2 % (0-9) Eosinophils (%) (Auto) 1 % (0-3) 1 % (0-3) Basophils (%) (Auto) 0 % (0-3) 0 % (0-3) Neutrophils # (Auto) 2.4 x10^3/uL (1.8-7.7) 2.8 x10^3/uL (1.8-7.7) Lymphocytes # (Auto) 8.9 x10^3/uL (1.0-4.8) 10.2 x10^3/uL (1.0-4.8) Monocytes # (Auto) 0.4 x10^3/uL (0.0-1.1) 0.3 x10^3/uL (0.0-1.1) Eosinophils # (Auto) 0.1 x10^3/uL (0.0-0.7) 0.1 x10^3/uL (0.0-0.7) Basophils # (Auto) 0.0 x10^3/uL (0.0-0.2) 0.0 x10^3/uL (0.0-0.2) Segmented Neutrophils % 17 % (35-66) Band Neutrophils % 1 % (0-9) Lymphocytes % 80 % (24-48) Eosinophils % 2 % (0-5) Smudge Cells Present Platelet Estimate Adequate (ADEQUATE) Prothrombin Time 99.0 SEC (11.7-14.0) 27.8 SEC (11.7-14.0) Prothromb Time International Ratio 12.8 (0.8-1.1) 2.6 (0.8-1.1) Sodium Level 139 mmol/L (136-145) 138 mmol/L (136-145) Potassium Level 5.2 mmol/L (3.5-5.1) 5.9 mmol/L (3.5-5.1) Chloride Level 103 mmol/L (98-107) 101 mmol/L (98-107) Carbon Dioxide Level 25 mmol/L (21-32) 23 mmol/L (21-32) Anion Gap 11 (6-14) 14 (6-14) Blood Urea Nitrogen 50 mg/dL (7-20) 62 mg/dL (7-20) Creatinine 5.0 mg/dL (0.6-1.0) 5.8 mg/dL (0.6-1.0) Estimated GFR (Cockcroft-Gault) 8.3 7.0 BUN/Creatinine Ratio 10 (6-20) Glucose Level 134 mg/dL (70-99) 125 mg/dL (70-99) Calcium Level 8.5 mg/dL (8.5-10.1) 8.6 mg/dL (8.5-10.1) Total Bilirubin 0.3 mg/dL (0.2-1.0) Aspartate Amino Transf (AST/SGOT) 15 U/L (15-37) Alanine Aminotransferase (ALT/SGPT) 18 U/L (14-59) Alkaline Phosphatase 73 U/L (46-116) Total Protein 6.5 g/dL (6.4-8.2) Albumin 3.1 g/dL (3.4-5.0) Albumin/Globulin Ratio 0.9 (1.0-1.7) Thyroid Stimulating Hormone (TSH) 2.978 uIU/mL (0.358-3.74) Stool Occult Blood Positive (NEG) Absolute Reticulocyte Count 0.079 x10^6/uL (0.020-0.120) Percent Reticulocyte Count 3.1 % (0.5-2.3) Immature Reticulocyte Fraction 0.62 (0.20-0.60) Iron Level 97 ug/dL (50-170) Total Iron Binding Capacity 249 ug/dL (250-450) Iron Saturation 39 % (15-34) Ferritin 743 ng/mL (8-252) CLARA LEON MD Aug 29, 2019 09:34
--- NOTE | 2019-08-29 10:44 | NUR ---
SS following for discharge planning. SS reviewed pt chart. Pt is from home with family and is currently on room air. Per pt's RN, pt is high functioning with mobility. SS will continue to follow for discharge planning.
--- NOTE | 2019-08-29 11:26 | PDOC ---
PROGRESS NOTES Chief Complaint Chief Complaint A/P: Acute blood loss anemia - also with anemia of chronic disease requiring transfusion: Hgb 6 Severe coagulopathy with coumadin therapy - INR initially at 12.8. 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 Richards for history of CLL that has never required treatment with A. yunior on Coumadin admitted with elevated INR and anemia with a hemoglobin to 6, fecal occult blood test is positive, she has had an EGD in October 2018 showing esophagitis and gastritis and is on a PPI, she declined colonoscopy at that time, and hemoglobin is up to 7.4 after transfusion. She also had some FFP and vitamin K and last INR was 2.6 down from 12.8. Fecal occult positive. Tolerated dialysis well, shortness of breath improved. Does not wish for colonoscopy. She is asking for discharge. HR in 110s after dialysis. Tolerated PO and IV metoprolol with good improvement in her HR. Has discussed outpatient consideration of watchman. Vitals Vitals Vital Signs Date Time Temp Pulse Resp B/P (MAP) Pulse Ox O2 Delivery O2 Flow Rate FiO2 08/29/19 08:24 126 116/70 08/29/19 08:00 Room Air 08/29/19 07:17 97.5 18 95 97.5 Physical Exam General: Alert, Oriented X3, Cooperative, No acute distress Heart: Other (AFIB rate controlled; 4/6 systolic murmur to LLS border) Lungs: Clear Abdomen: Soft, No tenderness Extremities: No cyanosis, Other (2+ bilateral LE pitting edema) Skin: No breakdown, No significant lesion Labs LABS Laboratory Tests Test 08/28/19 19:58 08/29/19 01:45 08/29/19 03:50 Hemoglobin 6.6 g/dL (12.0-15.5) 7.4 g/dL (12.0-15.5) Prothrombin Time 27.8 SEC (11.7-14.0) Prothromb Time International Ratio 2.6 (0.8-1.1) Stool Occult Blood Positive (NEG) White Blood Count 13.5 x10^3/uL (4.0-11.0) Red Blood Count 2.53 x10^6/uL (3.50-5.70) Hematocrit 23.1 % (36.0-47.0) Mean Corpuscular Volume 91 fL (79-100) Mean Corpuscular Hemoglobin 29 pg (25-35) Mean Corpuscular Hemoglobin Concent 32 g/dL (31-37) Red Cell Distribution Width 16.9 % (11.5-14.5) Platelet Count 122 x10^3/uL (140-400) Neutrophils (%) (Auto) 21 % (31-73) Lymphocytes (%) (Auto) 76 % (24-48) Monocytes (%) (Auto) 2 % (0-9) Eosinophils (%) (Auto) 1 % (0-3) Basophils (%) (Auto) 0 % (0-3) Neutrophils # (Auto) 2.8 x10^3/uL (1.8-7.7) Lymphocytes # (Auto) 10.2 x10^3/uL (1.0-4.8) Monocytes # (Auto) 0.3 x10^3/uL (0.0-1.1) Eosinophils # (Auto) 0.1 x10^3/uL (0.0-0.7) Basophils # (Auto) 0.0 x10^3/uL (0.0-0.2) Absolute Reticulocyte Count 0.079 x10^6/uL (0.020-0.120) Percent Reticulocyte Count 3.1 % (0.5-2.3) Immature Reticulocyte Fraction 0.62 (0.20-0.60) Sodium Level 138 mmol/L (136-145) Potassium Level 5.9 mmol/L (3.5-5.1) Chloride Level 101 mmol/L (98-107) Carbon Dioxide Level 23 mmol/L (21-32) Anion Gap 14 (6-14) Blood Urea Nitrogen 62 mg/dL (7-20) Creatinine 5.8 mg/dL (0.6-1.0) Estimated GFR (Cockcroft-Gault) 7.0 Glucose Level 125 mg/dL (70-99) Calcium Level 8.6 mg/dL (8.5-10.1) Iron Level 97 ug/dL (50-170) Total Iron Binding Capacity 249 ug/dL (250-450) Iron Saturation 39 % (15-34) Ferritin 743 ng/mL (8-252) Assessment and Plan Assessmemt and Plan Problems Medical Problems: (1) Symptomatic anemia Status: Acute (2) Warfarin-induced coagulopathy Status: Acute Comment Review of Relevant I have reviewed the following items taiwo (where applicable) has been applied. Labs Laboratory Tests Test 08/28/19 10:32 08/28/19 19:58 08/29/19 01:45 08/29/19 03:50 White Blood Count 11.9 x10^3/uL (4.0-11.0) 13.5 x10^3/uL (4.0-11.0) Red Blood Count 2.11 x10^6/uL (3.50-5.40) 2.53 x10^6/uL (3.50-5.70) Hemoglobin 6.0 g/dL (12.0-15.5) 6.6 g/dL (12.0-15.5) 7.4 g/dL (12.0-15.5) Hematocrit 19.8 % (36.0-47.0) 23.1 % (36.0-47.0) Mean Corpuscular Volume 94 fL (79-100) 91 fL (79-100) Mean Corpuscular Hemoglobin 29 pg (25-35) 29 pg (25-35) Mean Corpuscular Hemoglobin Concent 30 g/dL (31-37) 32 g/dL (31-37) Red Cell Distribution Width 18.4 % (11.5-14.5) 16.9 % (11.5-14.5) Platelet Count 148 x10^3/uL (140-400) 122 x10^3/uL (140-400) Neutrophils (%) (Auto) 20 % (31-73) 21 % (31-73) Lymphocytes (%) (Auto) 75 % (24-48) 76 % (24-48) Monocytes (%) (Auto) 3 % (0-9) 2 % (0-9) Eosinophils (%) (Auto) 1 % (0-3) 1 % (0-3) Basophils (%) (Auto) 0 % (0-3) 0 % (0-3) Neutrophils # (Auto) 2.4 x10^3/uL (1.8-7.7) 2.8 x10^3/uL (1.8-7.7) Lymphocytes # (Auto) 8.9 x10^3/uL (1.0-4.8) 10.2 x10^3/uL (1.0-4.8) Monocytes # (Auto) 0.4 x10^3/uL (0.0-1.1) 0.3 x10^3/uL (0.0-1.1) Eosinophils # (Auto) 0.1 x10^3/uL (0.0-0.7) 0.1 x10^3/uL (0.0-0.7) Basophils # (Auto) 0.0 x10^3/uL (0.0-0.2) 0.0 x10^3/uL (0.0-0.2) Segmented Neutrophils % 17 % (35-66) Band Neutrophils % 1 % (0-9) Lymphocytes % 80 % (24-48) Eosinophils % 2 % (0-5) Smudge Cells Present Platelet Estimate Adequate (ADEQUATE) Prothrombin Time 99.0 SEC (11.7-14.0) 27.8 SEC (11.7-14.0) Prothromb Time International Ratio 12.8 (0.8-1.1) 2.6 (0.8-1.1) Sodium Level 139 mmol/L (136-145) 138 mmol/L (136-145) Potassium Level 5.2 mmol/L (3.5-5.1) 5.9 mmol/L (3.5-5.1) Chloride Level 103 mmol/L (98-107) 101 mmol/L (98-107) Carbon Dioxide Level 25 mmol/L (21-32) 23 mmol/L (21-32) Anion Gap 11 (6-14) 14 (6-14) Blood Urea Nitrogen 50 mg/dL (7-20) 62 mg/dL (7-20) Creatinine 5.0 mg/dL (0.6-1.0) 5.8 mg/dL (0.6-1.0) Estimated GFR (Cockcroft-Gault) 8.3 7.0 BUN/Creatinine Ratio 10 (6-20) Glucose Level 134 mg/dL (70-99) 125 mg/dL (70-99) Calcium Level 8.5 mg/dL (8.5-10.1) 8.6 mg/dL (8.5-10.1) Total Bilirubin 0.3 mg/dL (0.2-1.0) Aspartate Amino Transf (AST/SGOT) 15 U/L (15-37) Alanine Aminotransferase (ALT/SGPT) 18 U/L (14-59) Alkaline Phosphatase 73 U/L (46-116) Total Protein 6.5 g/dL (6.4-8.2) Albumin 3.1 g/dL (3.4-5.0) Albumin/Globulin Ratio 0.9 (1.0-1.7) Thyroid Stimulating Hormone (TSH) 2.978 uIU/mL (0.358-3.74) Stool Occult Blood Positive (NEG) Absolute Reticulocyte Count 0.079 x10^6/uL (0.020-0.120) Percent Reticulocyte Count 3.1 % (0.5-2.3) Immature Reticulocyte Fraction 0.62 (0.20-0.60) Iron Level 97 ug/dL (50-170) Total Iron Binding Capacity 249 ug/dL (250-450) Iron Saturation 39 % (15-34) Ferritin 743 ng/mL (8-252) Laboratory Tests Test 08/28/19 19:58 08/29/19 01:45 08/29/19 03:50 Hemoglobin 6.6 g/dL (12.0-15.5) 7.4 g/dL (12.0-15.5) Prothrombin Time 27.8 SEC (11.7-14.0) Prothromb Time International Ratio 2.6 (0.8-1.1) Stool Occult Blood Positive (NEG) White Blood Count 13.5 x10^3/uL (4.0-11.0) Red Blood Count 2.53 x10^6/uL (3.50-5.70) Hematocrit 23.1 % (36.0-47.0) Mean Corpuscular Volume 91 fL (79-100) Mean Corpuscular Hemoglobin 29 pg (25-35) Mean Corpuscular Hemoglobin Concent 32 g/dL (31-37) Red Cell Distribution Width 16.9 % (11.5-14.5) Platelet Count 122 x10^3/uL (140-400) Neutrophils (%) (Auto) 21 % (31-73) Lymphocytes (%) (Auto) 76 % (24-48) Monocytes (%) (Auto) 2 % (0-9) Eosinophils (%) (Auto) 1 % (0-3) Basophils (%) (Auto) 0 % (0-3) Neutrophils # (Auto) 2.8 x10^3/uL (1.8-7.7) Lymphocytes # (Auto) 10.2 x10^3/uL (1.0-4.8) Monocytes # (Auto) 0.3 x10^3/uL (0.0-1.1) Eosinophils # (Auto) 0.1 x10^3/uL (0.0-0.7) Basophils # (Auto) 0.0 x10^3/uL (0.0-0.2) Absolute Reticulocyte Count 0.079 x10^6/uL (0.020-0.120) Percent Reticulocyte Count 3.1 % (0.5-2.3) Immature Reticulocyte Fraction 0.62 (0.20-0.60) Sodium Level 138 mmol/L (136-145) Potassium Level 5.9 mmol/L (3.5-5.1) Chloride Level 101 mmol/L (98-107) Carbon Dioxide Level 23 mmol/L (21-32) Anion Gap 14 (6-14) Blood Urea Nitrogen 62 mg/dL (7-20) Creatinine 5.8 mg/dL (0.6-1.0) Estimated GFR (Cockcroft-Gault) 7.0 Glucose Level 125 mg/dL (70-99) Calcium Level 8.6 mg/dL (8.5-10.1) Iron Level 97 ug/dL (50-170) Total Iron Binding Capacity 249 ug/dL (250-450) Iron Saturation 39 % (15-34) Ferritin 743 ng/mL (8-252) Medications Current Medications Diltiazem HCl (Cardizem Iv Push) 10 mg 1X ONCE IVP Last administered on 08/28/19at 11:43; Start 08/28/19 at 11:00; Stop 08/28/19 at 11:01; Status DC Phytonadione (Mephyton Oral Soln) 10 mg 1X ONCE PO Last administered on 08/28/19at 11:41; Start 08/28/19 at 11:30; Stop 08/28/19 at 11:31; Status DC Diltiazem HCl 125 mg/Dextrose 125 ml @ 5 mls/hr 1X ONCE IV Last administered on 08/28/19at 11:43; Start 08/28/19 at 11:30; Stop 08/29/19 at 07:54; Status DC Metoprolol Tartrate (Lopressor) 25 mg BID PO Last administered on 08/29/19at 08:05; Start 08/28/19 at 15:00 Digoxin (Lanoxin) 250 mcg PRN DAILY PRN IV SEE COMMENTS; Start 08/28/19 at 15:00 Acetaminophen (Tylenol) 500 mg PRN Q6HRS PRN PO QURESHI / TEMP; Start 08/28/19 at 17:15 Acetaminophen/ Codeine Phosphate (Tylenol #3) 1 tab PRN Q6HRS PRN PO PAIN; Start 08/28/19 at 17:15 Ondansetron HCl (Zofran) 4 mg PRN Q6HRS PRN IVP NAUSEA/VOMITING Last administered on 08/29/19at 01:38; Start 08/28/19 at 17:15 Atorvastatin Calcium (Lipitor) 20 mg HS PO Last administered on 08/28/19at 22:58; Start 08/28/19 at 21:00 Sucralfate (Carafate) 1 gm BIDAC PO Last administered on 08/28/19at 17:39; Start 08/28/19 at 07:30 Calcium Acetate (Phoslo) 2,001 mg BIDWMEALS PO Last administered on 08/29/19at 08:24; Start 08/28/19 at 18:00 Pantoprazole Sodium (Protonix) 40 mg DAILYAC PO ; Start 08/29/19 at 07:30 Metoprolol Tartrate (Lopressor Vial) 5 mg 1X ONCE IVP Last administered on 08/29/19at 08:24; Start 08/29/19 at 08:30; Stop 08/29/19 at 08:31; Status DC Metoprolol Tartrate (Lopressor Vial) 5 mg STK-MED ONCE IVP ; Start 08/29/19 at 08:22; Stop 08/29/19 at 08:22; Status DC Sodium Chloride 1,000 ml @ 1,000 mls/hr Q1H PRN IV hypotension; Start 08/29/19 at 08:31; Stop 08/29/19 at 14:30 Acetaminophen (Tylenol) 500 mg 1X PRN PRN PO MILD PAIN / TEMP; Start 08/29/19 at 08:45; Stop 08/30/19 at 08:44 Diphenhydramine HCl (Benadryl) 25 mg 1X PRN PRN IV ITCHING; Start 08/29/19 at 08:45; Stop 08/30/19 at 08:44 Diphenhydramine HCl (Benadryl) 25 mg 1X PRN PRN IV ITCHING; Start 08/29/19 at 08:45; Stop 08/30/19 at 08:44 Sodium Chloride 1,000 ml @ 400 mls/hr Q2H30M PRN IV PATENCY; Start 08/29/19 at 08:31; Stop 08/29/19 at 20:30 Info (PHARMACY MONITORING -- do not chart) 1 each PRN DAILY PRN MC SEE COMMENTS; Start 08/29/19 at 08:45 Active Scripts Active Lipitor (Atorvastatin Calcium) 20 Mg Tablet 20 Mg PO HS Reported Aspir-Low (Aspirin) 81 Mg Tablet. 1 Tab PO DAILY Carafate (Sucralfate) 1 Gm Tablet 1 Tab PO BIDAC 30 Days Midodrine Hcl 2.5 Mg Tablet 2.5 Mg PO BID Coumadin (Warfarin Sodium) 4 Mg Tablet 2 Tab PO DAILY Calcium Acetate 667 Mg Tablet 3 Tab PO BID Coreg (Carvedilol) 3.125 Mg Tablet 3.125 Mg PO BIDWMEALS Omeprazole 20 Mg Tablet. 20 Mg PO DAILY Vitals/I & O Vital Sign - Last 24 Hours 08/28/19 08/28/19 08/28/19 08/28/19 11:43 11:48 12:12 12:37 Temp 98.0 98.0 98.0 98.0 Pulse 114 104 103 107 Resp 18 20 18 B/P (MAP) 110/62 101/59 (73) 101/59 99/55 Pulse Ox 100 O2 Delivery Room Air 08/28/19 08/28/19 08/28/19 08/28/19 12:55 13:12 13:29 13:43 Temp 98.9 97.5 97.5 98.9 97.5 97.5 Pulse 117 145 96 102 Resp 18 18 18 18 B/P (MAP) 100/62 100/62 107/61 104/52 08/28/19 08/28/19 08/28/19 08/28/19 15:00 15:00 16:01 16:18 Temp 97.5 99.1 99.0 97.5 99.1 99.0 Pulse 95 90 80 88 Resp 18 18 18 18 B/P (MAP) 113/61 (78) 107/57 (74) 90/49 92/55 Pulse Ox 99 99 O2 Delivery Room Air Room Air 08/28/19 08/28/19 08/28/19 08/28/19 17:15 17:57 18:15 19:18 Temp 98.0 99.0 98.0 99.0 Pulse 94 93 96 Resp 16 18 B/P (MAP) 101/64 109/57 109/70 (83) O2 Delivery Room Air 08/28/19 08/28/19 08/28/19 08/28/19 19:30 20:00 20:27 20:29 Temp 97.8 97.8 Pulse 91 90 90 Resp 18 B/P (MAP) 109/70 (83) 85/49 (61) 93/45 (61) Pulse Ox 95 O2 Delivery Room Air Room Air 08/28/19 08/28/19 08/28/19 08/28/19 20:33 20:48 21:03 21:33 Pulse 90 94 86 86 B/P (MAP) 98/43 (61) 91/47 (62) 93/48 (63) 84/55 (65) O2 Delivery Room Air Room Air Room Air 08/28/19 08/28/19 08/28/19 08/28/19 21:36 22:03 22:33 22:52 Pulse 86 92 87 88 B/P (MAP) 103/51 (68) 99/59 (72) 102/53 (69) 96/64 (75) O2 Delivery Room Air Room Air Room Air Room Air 08/28/19 08/28/19 08/28/19 08/28/19 22:55 22:59 23:03 23:33 Temp 98.0 98.0 Pulse 87 91 88 96 Resp 18 B/P (MAP) 96/64 (75) 109/70 104/61 (75) 115/72 (86) Pulse Ox 98 O2 Delivery Room Air Room Air Room Air 08/29/19 08/29/19 08/29/19 08/29/19 00:03 00:05 00:27 00:55 Pulse 80 78 78 78 B/P (MAP) 93/52 (66) 102/51 (68) 96/52 (67) 90/50 (63) O2 Delivery Room Air Room Air Room Air Room Air 08/29/19 08/29/19 08/29/19 08/29/19 01:03 01:40 02:03 02:33 Pulse 76 88 82 86 B/P (MAP) 96/60 (72) 115/73 (87) 84/50 (61) 87/65 (72) O2 Delivery Room Air Room Air Room Air Room Air 08/29/19 08/29/19 08/29/19 08/29/19 02:58 03:00 07:17 08:00 Temp 98.1 97.5 98.1 97.5 Pulse 90 95 108 Resp 18 18 B/P (MAP) 96/67 (77) 96/67 (77) 116/70 (85) Pulse Ox 100 95 O2 Delivery Room Air Room Air Room Air Room Air 08/29/19 08/29/19 08:05 08:24 Pulse 108 126 B/P (MAP) 116/70 116/70 Intake and Output 08/28/19 08/28/19 08/29/19 15:00 23:00 07:00 Intake Total 500 ml 275 ml 786 ml Balance 500 ml 275 ml 786 ml STACY LEAVITT MD Aug 29, 2019 11:26
--- NOTE | 2019-08-29 12:20 | PDOC ---
SMITHA YOUNG ANDREW 08/29/19 1220: CARDIO Progress Notes Date and Time Date of Service 08/29/19 Time of Evaluation 1210 Subjective Subjective: Other (saw on HD. No chest pain, palpitations, dizziness, diaphoresis ) Vitals Vitals Vital Signs Date Time Temp Pulse Resp B/P (MAP) Pulse Ox O2 Delivery O2 Flow Rate FiO2 08/29/19 08:24 126 116/70 08/29/19 08:00 Room Air 08/29/19 07:17 97.5 18 95 97.5 Weight Weight [ ] Input and Output Intake and Output Intake and Output 08/29/19 07:00 Intake Total 1561 ml Balance 1561 ml Intake Oral 340 ml Blood Product IV Normal Saline Flush 1221 ml Laboratory Labs Laboratory Tests Test 08/28/19 19:58 08/29/19 01:45 08/29/19 03:50 Hemoglobin 6.6 g/dL (12.0-15.5) 7.4 g/dL (12.0-15.5) Prothrombin Time 27.8 SEC (11.7-14.0) Prothromb Time International Ratio 2.6 (0.8-1.1) Stool Occult Blood Positive (NEG) White Blood Count 13.5 x10^3/uL (4.0-11.0) Red Blood Count 2.53 x10^6/uL (3.50-5.70) Hematocrit 23.1 % (36.0-47.0) Mean Corpuscular Volume 91 fL (79-100) Mean Corpuscular Hemoglobin 29 pg (25-35) Mean Corpuscular Hemoglobin Concent 32 g/dL (31-37) Red Cell Distribution Width 16.9 % (11.5-14.5) Platelet Count 122 x10^3/uL (140-400) Neutrophils (%) (Auto) 21 % (31-73) Lymphocytes (%) (Auto) 76 % (24-48) Monocytes (%) (Auto) 2 % (0-9) Eosinophils (%) (Auto) 1 % (0-3) Basophils (%) (Auto) 0 % (0-3) Neutrophils # (Auto) 2.8 x10^3/uL (1.8-7.7) Lymphocytes # (Auto) 10.2 x10^3/uL (1.0-4.8) Monocytes # (Auto) 0.3 x10^3/uL (0.0-1.1) Eosinophils # (Auto) 0.1 x10^3/uL (0.0-0.7) Basophils # (Auto) 0.0 x10^3/uL (0.0-0.2) Absolute Reticulocyte Count 0.079 x10^6/uL (0.020-0.120) Percent Reticulocyte Count 3.1 % (0.5-2.3) Immature Reticulocyte Fraction 0.62 (0.20-0.60) Sodium Level 138 mmol/L (136-145) Potassium Level 5.9 mmol/L (3.5-5.1) Chloride Level 101 mmol/L (98-107) Carbon Dioxide Level 23 mmol/L (21-32) Anion Gap 14 (6-14) Blood Urea Nitrogen 62 mg/dL (7-20) Creatinine 5.8 mg/dL (0.6-1.0) Estimated GFR (Cockcroft-Gault) 7.0 Glucose Level 125 mg/dL (70-99) Calcium Level 8.6 mg/dL (8.5-10.1) Iron Level 97 ug/dL (50-170) Total Iron Binding Capacity 249 ug/dL (250-450) Iron Saturation 39 % (15-34) Ferritin 743 ng/mL (8-252) Physical Exam HEENT: Neck Supple W Full Motion Chest: Symmetric LUNGS: Clear to Auscultation Heart: S1S2, murmurs (3/6 sysyolic murmur ), irregularly irregular (AFIB, rate 95) Extremities: No Edema Neurology: alert, oriented, follow commands Assessment Assessment 1. Anemia of chronic disease; s/p 2 units of PRBC's. Hgb now 7.4 2. Severe coagulopathy with Coumadin therapy: s/p 3 units FFR. INR at 12.8- 2.6 3. CLL 4. AFIB RVR; anemia contributing. S/p IV metoprolol this morning. Rate now better controlled 5. Hx of CVA 6. HTN: controlled, but low end 7. ESRD, hyperkalemia 8. Severe TR 9. Hx of CAD. Recommendations Fluid off loading per HD Continue metoprolol for rate control Dig IV PRN Consider outpatient ROVERTO closure device Supportive care BRYAN MCGILL MD 08/29/19 1702: CARDIO Progress Notes Plan Plan Pt. seen and examined. 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 Continues to have afib with RVR, likely related to anemia Use IV and p.o metoprolol as her BP is on the lower side. Supportive care for now. No anticoagulation given severe anemia. Await anemia w/u Outpt referral to [facility] for ROVERTO. SMITHA YOUNG APRN Aug 29, 2019 12:20 BRYAN MCGILL MD Aug 29, 2019 17:02
--- NOTE | 2019-08-29 13:15 | PDOC2 ---
CONSULT Date of Consult Date of Consult DATE: 08/29/19 TIME: 13:02 Reason for Consult Reason for Consult: ESRD Source Source: Chart review, Patient History of Present Illness Reason for Visit: Pt is 84-year-old female ESRD on HD MWF, history of CLL- followed by Dr. Richards ,has never required treatment , A. fib on Coumadin Admitted for complains of elevated INR with feeling fatigue and MORENO. Reports that her MORENO and fatigue just started about 2 days ago. No chest pain, palpitation but has been feeling dizzy. No obvious blood or dark stools. She has had significant anemia before and had multiple blood transfusion with other significant comorbid conditions such as CLL and monoclonal gammopathy. She also has chronic AFIB and is taking coumadin with past CVA as well. No known CAD. She was treated recently about 3 weeks ago with antibiotics due to pneumonia and unclear what antibiotics used but also her coumadin was eventually increased with her INR not in therapeutic range. She came to ED and her HR was fast and on AFIB RVR. She doesnt have RRF Hemoglobin 6, fecal occult blood test is positive, she has had an EGD in October 2018 showing esophagitis and gastritis and is on a PPI, she declined colonoscopy at that time, and hemoglobin is up to 7.4 after transfusion. She also had some FFP and vitamin K and last INR was 2.6 down from 12.8. 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 History of stroke Hypertension Hyperlipidemia Coronary artery disease Severe TR End-stage renal disease on hemodialysis Past surgical history: Hysterectomy Left upper extremity fistula Cardiovascular: AFIB, CAD (mild CAD last noted via [facility] 2007), HTN, Hyperlipidemia, Valve insufficiency (severeTR) Pulmonary: Pneumonia CENTRAL NERVOUS SYSTEM: CVA GI: GERD Heme/Onc: Anemia NOS, Cancer (CLL), Other (chronic coumadin therapy) Musculoskeletal: Osteoarthritis Rheumatologic: No pertinent hx Infectious disease: No pertinent hx ENT: No pertinent hx Renal/: Chronic renal failure (ESRD) Endocrine: No pertinent hx Dermatology: No pertinent hx Past Surgical History Past Surgical History: Hysterectomy, Other (LUE dialysis fistula) Family History Family History: Coronary Artery Disease Social History Social History No tobacco or alcohol, lives with family No ALCOHOL: none Drugs: None Lives: with Family Current Problem List Problem List Problems Medical Problems: (1) Symptomatic anemia Status: Acute (2) Warfarin-induced coagulopathy Status: Acute Current Medications Current Medications Current Medications Diltiazem HCl (Cardizem Iv Push) 10 mg 1X ONCE IVP Last administered on 08/28/19at 11:43; Start 08/28/19 at 11:00; Stop 08/28/19 at 11:01; Status DC Phytonadione (Mephyton Oral Soln) 10 mg 1X ONCE PO Last administered on 08/28/19at 11:41; Start 08/28/19 at 11:30; Stop 08/28/19 at 11:31; Status DC Diltiazem HCl 125 mg/Dextrose 125 ml @ 5 mls/hr 1X ONCE IV Last administered on 08/28/19at 11:43; Start 08/28/19 at 11:30; Stop 08/29/19 at 07:54; Status DC Metoprolol Tartrate (Lopressor) 25 mg BID PO Last administered on 08/29/19at 08:05; Start 08/28/19 at 15:00 Digoxin (Lanoxin) 250 mcg PRN DAILY PRN IV SEE COMMENTS; Start 08/28/19 at 15:00 Acetaminophen (Tylenol) 500 mg PRN Q6HRS PRN PO QURESHI / TEMP; Start 08/28/19 at 17:15 Acetaminophen/ Codeine Phosphate (Tylenol #3) 1 tab PRN Q6HRS PRN PO PAIN; Start 08/28/19 at 17:15 Ondansetron HCl (Zofran) 4 mg PRN Q6HRS PRN IVP NAUSEA/VOMITING Last administered on 08/29/19at 01:38; Start 08/28/19 at 17:15 Atorvastatin Calcium (Lipitor) 20 mg HS PO Last administered on 08/28/19at 22:58; Start 08/28/19 at 21:00 Sucralfate (Carafate) 1 gm BIDAC PO Last administered on 08/28/19at 17:39; Start 08/28/19 at 07:30 Calcium Acetate (Phoslo) 2,001 mg BIDWMEALS PO Last administered on 08/29/19at 08:24; Start 08/28/19 at 18:00 Pantoprazole Sodium (Protonix) 40 mg DAILYAC PO ; Start 08/29/19 at 07:30 Metoprolol Tartrate (Lopressor Vial) 5 mg 1X ONCE IVP Last administered on 08/29/19at 08:24; Start 08/29/19 at 08:30; Stop 08/29/19 at 08:31; Status DC Metoprolol Tartrate (Lopressor Vial) 5 mg STK-MED ONCE IVP ; Start 08/29/19 at 08:22; Stop 08/29/19 at 08:22; Status DC Sodium Chloride 1,000 ml @ 1,000 mls/hr Q1H PRN IV hypotension; Start 08/29/19 at 08:31; Stop 08/29/19 at 14:30 Acetaminophen (Tylenol) 500 mg 1X PRN PRN PO MILD PAIN / TEMP; Start 08/29/19 at 08:45; Stop 08/30/19 at 08:44 Diphenhydramine HCl (Benadryl) 25 mg 1X PRN PRN IV ITCHING; Start 08/29/19 at 08:45; Stop 08/30/19 at 08:44 Diphenhydramine HCl (Benadryl) 25 mg 1X PRN PRN IV ITCHING; Start 08/29/19 at 08:45; Stop 08/30/19 at 08:44 Sodium Chloride 1,000 ml @ 400 mls/hr Q2H30M PRN IV PATENCY; Start 08/29/19 at 08:31; Stop 08/29/19 at 20:30 Info (PHARMACY MONITORING -- do not chart) 1 each PRN DAILY PRN MC SEE COMMENTS; Start 08/29/19 at 08:45 Active Scripts Active Lipitor (Atorvastatin Calcium) 20 Mg Tablet 20 Mg PO HS Reported Aspir-Low (Aspirin) 81 Mg Tablet. 1 Tab PO DAILY Carafate (Sucralfate) 1 Gm Tablet 1 Tab PO BIDAC 30 Days Midodrine Hcl 2.5 Mg Tablet 2.5 Mg PO BID Coumadin (Warfarin Sodium) 4 Mg Tablet 2 Tab PO DAILY Calcium Acetate 667 Mg Tablet 3 Tab PO BID Coreg (Carvedilol) 3.125 Mg Tablet 3.125 Mg PO BIDWMEALS Omeprazole 20 Mg Tablet. 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 History of stroke Hypertension Hyperlipidemia Coronary artery disease Severe TR End-stage renal disease on hemodialysis Past surgical history: Hysterectomy Left upper extremity fistula EGD October 2018 Allergies: Ibuprofen Medications: See attached list Social history: No tobacco or alcohol, lives with family Family history: No CLL, does have coronary artery disease Review of systems: Other than the anemia she denies 10 point review of systems this morning, does have some lower extremity edema Gen.: no acute distress HEENT: mucous membranes moist, head normocephalic atraumatic Neck: Supple, Lungs: CTA, Non labored CV RRR Abdomen: Soft, nontended Extremities: No cyanosis, LE edema Skin: No obvious rashes or skin breakdown Neuro: Alert and oriented 3 Psych: Normal mood and affect No licea Vital Signs Vital Signs Date Time Temp Pulse Resp B/P (MAP) Pulse Ox O2 Delivery O2 Flow Rate FiO2 08/29/19 08:24 126 116/70 08/29/19 08:00 Room Air 08/29/19 07:17 97.5 18 95 97.5 Assessment & Plan ESRD- On HD MWF Seen on HD , tolerating well, no complaints Continue as ordered , Todd Lambert Anemia- Fecal occult blood test positive: had gastritis and esophagitis on EGD in October 2018, she has declined colonoscopy in the past defer to GI and Hem/onc Severe coagulopathy with coumadin therapy: INR at 12.8, improved with Vit K and FFP CLL and monoclonal gammopathy undetermined:follows with Dr. Richards as OP Seen by Oncology whil e inpatient AFIB RVR: per cardiology Hx of CVA HTN Hx of CAD. Labs Labs Laboratory Tests Test 08/28/19 10:32 08/28/19 19:58 08/29/19 01:45 08/29/19 03:50 White Blood Count 11.9 x10^3/uL (4.0-11.0) 13.5 x10^3/uL (4.0-11.0) Red Blood Count 2.11 x10^6/uL (3.50-5.40) 2.53 x10^6/uL (3.50-5.70) Hemoglobin 6.0 g/dL (12.0-15.5) 6.6 g/dL (12.0-15.5) 7.4 g/dL (12.0-15.5) Hematocrit 19.8 % (36.0-47.0) 23.1 % (36.0-47.0) Mean Corpuscular Volume 94 fL (79-100) 91 fL (79-100) Mean Corpuscular Hemoglobin 29 pg (25-35) 29 pg (25-35) Mean Corpuscular Hemoglobin Concent 30 g/dL (31-37) 32 g/dL (31-37) Red Cell Distribution Width 18.4 % (11.5-14.5) 16.9 % (11.5-14.5) Platelet Count 148 x10^3/uL (140-400) 122 x10^3/uL (140-400) Neutrophils (%) (Auto) 20 % (31-73) 21 % (31-73) Lymphocytes (%) (Auto) 75 % (24-48) 76 % (24-48) Monocytes (%) (Auto) 3 % (0-9) 2 % (0-9) Eosinophils (%) (Auto) 1 % (0-3) 1 % (0-3) Basophils (%) (Auto) 0 % (0-3) 0 % (0-3) Neutrophils # (Auto) 2.4 x10^3/uL (1.8-7.7) 2.8 x10^3/uL (1.8-7.7) Lymphocytes # (Auto) 8.9 x10^3/uL (1.0-4.8) 10.2 x10^3/uL (1.0-4.8) Monocytes # (Auto) 0.4 x10^3/uL (0.0-1.1) 0.3 x10^3/uL (0.0-1.1) Eosinophils # (Auto) 0.1 x10^3/uL (0.0-0.7) 0.1 x10^3/uL (0.0-0.7) Basophils # (Auto) 0.0 x10^3/uL (0.0-0.2) 0.0 x10^3/uL (0.0-0.2) Segmented Neutrophils % 17 % (35-66) Band Neutrophils % 1 % (0-9) Lymphocytes % 80 % (24-48) Eosinophils % 2 % (0-5) Smudge Cells Present Platelet Estimate Adequate (ADEQUATE) Prothrombin Time 99.0 SEC (11.7-14.0) 27.8 SEC (11.7-14.0) Prothromb Time International Ratio 12.8 (0.8-1.1) 2.6 (0.8-1.1) Sodium Level 139 mmol/L (136-145) 138 mmol/L (136-145) Potassium Level 5.2 mmol/L (3.5-5.1) 5.9 mmol/L (3.5-5.1) Chloride Level 103 mmol/L (98-107) 101 mmol/L (98-107) Carbon Dioxide Level 25 mmol/L (21-32) 23 mmol/L (21-32) Anion Gap 11 (6-14) 14 (6-14) Blood Urea Nitrogen 50 mg/dL (7-20) 62 mg/dL (7-20) Creatinine 5.0 mg/dL (0.6-1.0) 5.8 mg/dL (0.6-1.0) Estimated GFR (Cockcroft-Gault) 8.3 7.0 BUN/Creatinine Ratio 10 (6-20) Glucose Level 134 mg/dL (70-99) 125 mg/dL (70-99) Calcium Level 8.5 mg/dL (8.5-10.1) 8.6 mg/dL (8.5-10.1) Total Bilirubin 0.3 mg/dL (0.2-1.0) Aspartate Amino Transf (AST/SGOT) 15 U/L (15-37) Alanine Aminotransferase (ALT/SGPT) 18 U/L (14-59) Alkaline Phosphatase 73 U/L (46-116) Total Protein 6.5 g/dL (6.4-8.2) Albumin 3.1 g/dL (3.4-5.0) Albumin/Globulin Ratio 0.9 (1.0-1.7) Thyroid Stimulating Hormone (TSH) 2.978 uIU/mL (0.358-3.74) Stool Occult Blood Positive (NEG) Absolute Reticulocyte Count 0.079 x10^6/uL (0.020-0.120) Percent Reticulocyte Count 3.1 % (0.5-2.3) Immature Reticulocyte Fraction 0.62 (0.20-0.60) Iron Level 97 ug/dL (50-170) Total Iron Binding Capacity 249 ug/dL (250-450) Iron Saturation 39 % (15-34) Ferritin 743 ng/mL (8-252) Laboratory Tests Test 08/28/19 19:58 08/29/19 01:45 08/29/19 03:50 Hemoglobin 6.6 g/dL (12.0-15.5) 7.4 g/dL (12.0-15.5) Prothrombin Time 27.8 SEC (11.7-14.0) Prothromb Time International Ratio 2.6 (0.8-1.1) Stool Occult Blood Positive (NEG) White Blood Count 13.5 x10^3/uL (4.0-11.0) Red Blood Count 2.53 x10^6/uL (3.50-5.70) Hematocrit 23.1 % (36.0-47.0) Mean Corpuscular Volume 91 fL (79-100) Mean Corpuscular Hemoglobin 29 pg (25-35) Mean Corpuscular Hemoglobin Concent 32 g/dL (31-37) Red Cell Distribution Width 16.9 % (11.5-14.5) Platelet Count 122 x10^3/uL (140-400) Neutrophils (%) (Auto) 21 % (31-73) Lymphocytes (%) (Auto) 76 % (24-48) Monocytes (%) (Auto) 2 % (0-9) Eosinophils (%) (Auto) 1 % (0-3) Basophils (%) (Auto) 0 % (0-3) Neutrophils # (Auto) 2.8 x10^3/uL (1.8-7.7) Lymphocytes # (Auto) 10.2 x10^3/uL (1.0-4.8) Monocytes # (Auto) 0.3 x10^3/uL (0.0-1.1) Eosinophils # (Auto) 0.1 x10^3/uL (0.0-0.7) Basophils # (Auto) 0.0 x10^3/uL (0.0-0.2) Absolute Reticulocyte Count 0.079 x10^6/uL (0.020-0.120) Percent Reticulocyte Count 3.1 % (0.5-2.3) Immature Reticulocyte Fraction 0.62 (0.20-0.60) Sodium Level 138 mmol/L (136-145) Potassium Level 5.9 mmol/L (3.5-5.1) Chloride Level 101 mmol/L (98-107) Carbon Dioxide Level 23 mmol/L (21-32) Anion Gap 14 (6-14) Blood Urea Nitrogen 62 mg/dL (7-20) Creatinine 5.8 mg/dL (0.6-1.0) Estimated GFR (Cockcroft-Gault) 7.0 Glucose Level 125 mg/dL (70-99) Calcium Level 8.6 mg/dL (8.5-10.1) Iron Level 97 ug/dL (50-170) Total Iron Binding Capacity 249 ug/dL (250-450) Iron Saturation 39 % (15-34) Ferritin 743 ng/mL (8-252) Review All relevant outside records, renal labs, imaging studies, telemetry/EKG's were reviewed. KAREY DUNN MD Aug 29, 2019 13:15
[2019-08-29] MEDS ORDERED: METO25TA4 PO (13:26)
[2019-08-29] MEDS: ATORVASTATIN CALCIUM 20 MG TABLET PO SCH (20:29)
[2019-08-29 21:12] LABS: IMMUNOGLOBULIN A 58 mg/dL (64-422); IMMUNOGLOBULIN G 630 mg/dL (700-1600); IMMUNOGLOBULIN M 48 mg/dL (26-217)
[2019-08-30 02:53] VITALS: BP 95/54
[2019-08-30 07:00] VITALS: BP 106/65
[2019-08-30] MEDS: CALCIUM ACETATE 667 MG CAPSULE PO SCH (08:00)
--- NOTE | 2019-08-30 08:02 | PDOC ---
PROGRESS NOTES Chief Complaint Chief Complaint A/P: Acute blood loss anemia - also with anemia of chronic disease requiring transfusion: Hgb 6 Severe coagulopathy with coumadin therapy - INR initially at 12.8. 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 Richards for history of CLL that has never required treatment with A. yunior on Coumadin admitted with elevated INR and anemia with a hemoglobin to 6, fecal occult blood test is positive, she has had an EGD in October 2018 showing esophagitis and gastritis and is on a PPI, she declined colonoscopy at that time, and hemoglobin is up to 7.4 after transfusion. She also had some FFP and vitamin K and last INR was 2.6 down from 12.8. Fecal occult positive. Tolerated dialysis well, shortness of breath improved. Does not wish for colonoscopy. She is asking for discharge. HR in 110s after dialysis. Tolerated PO and IV metoprolol with good improvement in her HR. Has discussed outpatient consideration of watchman. INR 1.3, K 3.7 now. Will f/u outpatient INR. Vitals Vitals Vital Signs Date Time Temp Pulse Resp B/P (MAP) Pulse Ox O2 Delivery O2 Flow Rate FiO2 08/30/19 02:53 98.2 92 20 95/54 (68) 96 Room Air 98.2 Physical Exam General: Alert, Oriented X3, Cooperative, No acute distress Heart: Other (AFIB rate controlled; 4/6 systolic murmur to LLS border) Lungs: Clear Abdomen: Soft, No tenderness Extremities: No cyanosis, Other (2+ bilateral LE pitting edema) Skin: No breakdown, No significant lesion Labs LABS Laboratory Tests Test 08/29/19 09:20 Haptoglobin 186 mg/dL (34-200) Immunoglobulin G 630 mg/dL (700-1600) Immunoglobulin A 58 mg/dL (64-422) Immunoglobulin M 48 mg/dL (26-217) Assessment and Plan Assessmemt and Plan Problems Medical Problems: (1) Anemia in chronic illness Status: Chronic (2) CAD (coronary artery disease) Status: Chronic (3) CLL (chronic lymphocytic leukemia) Status: Chronic (4) Coagulopathy Status: Chronic (5) CVA (cerebral vascular accident) Status: Chronic (6) ESRD (end stage renal disease) Status: Chronic (7) HTN (hypertension) Status: Chronic (8) Symptomatic anemia Status: Acute (9) Warfarin-induced coagulopathy Status: Acute Comment Review of Relevant I have reviewed the following items taiwo (where applicable) has been applied. Labs Laboratory Tests Test 08/28/19 10:32 08/28/19 19:58 08/29/19 01:45 08/29/19 03:50 White Blood Count 11.9 x10^3/uL (4.0-11.0) 13.5 x10^3/uL (4.0-11.0) Red Blood Count 2.11 x10^6/uL (3.50-5.40) 2.53 x10^6/uL (3.50-5.70) Hemoglobin 6.0 g/dL (12.0-15.5) 6.6 g/dL (12.0-15.5) 7.4 g/dL (12.0-15.5) Hematocrit 19.8 % (36.0-47.0) 23.1 % (36.0-47.0) Mean Corpuscular Volume 94 fL (79-100) 91 fL (79-100) Mean Corpuscular Hemoglobin 29 pg (25-35) 29 pg (25-35) Mean Corpuscular Hemoglobin Concent 30 g/dL (31-37) 32 g/dL (31-37) Red Cell Distribution Width 18.4 % (11.5-14.5) 16.9 % (11.5-14.5) Platelet Count 148 x10^3/uL (140-400) 122 x10^3/uL (140-400) Neutrophils (%) (Auto) 20 % (31-73) 21 % (31-73) Lymphocytes (%) (Auto) 75 % (24-48) 76 % (24-48) Monocytes (%) (Auto) 3 % (0-9) 2 % (0-9) Eosinophils (%) (Auto) 1 % (0-3) 1 % (0-3) Basophils (%) (Auto) 0 % (0-3) 0 % (0-3) Neutrophils # (Auto) 2.4 x10^3/uL (1.8-7.7) 2.8 x10^3/uL (1.8-7.7) Lymphocytes # (Auto) 8.9 x10^3/uL (1.0-4.8) 10.2 x10^3/uL (1.0-4.8) Monocytes # (Auto) 0.4 x10^3/uL (0.0-1.1) 0.3 x10^3/uL (0.0-1.1) Eosinophils # (Auto) 0.1 x10^3/uL (0.0-0.7) 0.1 x10^3/uL (0.0-0.7) Basophils # (Auto) 0.0 x10^3/uL (0.0-0.2) 0.0 x10^3/uL (0.0-0.2) Segmented Neutrophils % 17 % (35-66) Band Neutrophils % 1 % (0-9) Lymphocytes % 80 % (24-48) Eosinophils % 2 % (0-5) Smudge Cells Present Platelet Estimate Adequate (ADEQUATE) Prothrombin Time 99.0 SEC (11.7-14.0) 27.8 SEC (11.7-14.0) Prothromb Time International Ratio 12.8 (0.8-1.1) 2.6 (0.8-1.1) Sodium Level 139 mmol/L (136-145) 138 mmol/L (136-145) Potassium Level 5.2 mmol/L (3.5-5.1) 5.9 mmol/L (3.5-5.1) Chloride Level 103 mmol/L (98-107) 101 mmol/L (98-107) Carbon Dioxide Level 25 mmol/L (21-32) 23 mmol/L (21-32) Anion Gap 11 (6-14) 14 (6-14) Blood Urea Nitrogen 50 mg/dL (7-20) 62 mg/dL (7-20) Creatinine 5.0 mg/dL (0.6-1.0) 5.8 mg/dL (0.6-1.0) Estimated GFR (Cockcroft-Gault) 8.3 7.0 BUN/Creatinine Ratio 10 (6-20) Glucose Level 134 mg/dL (70-99) 125 mg/dL (70-99) Calcium Level 8.5 mg/dL (8.5-10.1) 8.6 mg/dL (8.5-10.1) Total Bilirubin 0.3 mg/dL (0.2-1.0) Aspartate Amino Transf (AST/SGOT) 15 U/L (15-37) Alanine Aminotransferase (ALT/SGPT) 18 U/L (14-59) Alkaline Phosphatase 73 U/L (46-116) Total Protein 6.5 g/dL (6.4-8.2) Albumin 3.1 g/dL (3.4-5.0) Albumin/Globulin Ratio 0.9 (1.0-1.7) Thyroid Stimulating Hormone (TSH) 2.978 uIU/mL (0.358-3.74) Stool Occult Blood Positive (NEG) Absolute Reticulocyte Count 0.079 x10^6/uL (0.020-0.120) Percent Reticulocyte Count 3.1 % (0.5-2.3) Immature Reticulocyte Fraction 0.62 (0.20-0.60) Iron Level 97 ug/dL (50-170) Total Iron Binding Capacity 249 ug/dL (250-450) Iron Saturation 39 % (15-34) Ferritin 743 ng/mL (8-252) Test 08/29/19 09:20 Haptoglobin 186 mg/dL (34-200) Immunoglobulin G 630 mg/dL (700-1600) Immunoglobulin A 58 mg/dL (64-422) Immunoglobulin M 48 mg/dL (26-217) Laboratory Tests Test 08/29/19 09:20 Haptoglobin 186 mg/dL (34-200) Immunoglobulin G 630 mg/dL (700-1600) Immunoglobulin A 58 mg/dL (64-422) Immunoglobulin M 48 mg/dL (26-217) Medications Current Medications Diltiazem HCl (Cardizem Iv Push) 10 mg 1X ONCE IVP Last administered on 08/28/19at 11:43; Start 08/28/19 at 11:00; Stop 08/28/19 at 11:01; Status DC Phytonadione (Mephyton Oral Soln) 10 mg 1X ONCE PO Last administered on 08/28/19at 11:41; Start 08/28/19 at 11:30; Stop 08/28/19 at 11:31; Status DC Diltiazem HCl 125 mg/Dextrose 125 ml @ 5 mls/hr 1X ONCE IV Last administered on 08/28/19at 11:43; Start 08/28/19 at 11:30; Stop 08/29/19 at 07:54; Status DC Metoprolol Tartrate (Lopressor) 25 mg BID PO Last administered on 08/29/19at 20:34; Start 08/28/19 at 15:00 Digoxin (Lanoxin) 250 mcg PRN DAILY PRN IV SEE COMMENTS; Start 08/28/19 at 15:00 Acetaminophen (Tylenol) 500 mg PRN Q6HRS PRN PO QURESHI / TEMP; Start 08/28/19 at 17:15 Acetaminophen/ Codeine Phosphate (Tylenol #3) 1 tab PRN Q6HRS PRN PO PAIN; Start 08/28/19 at 17:15 Ondansetron HCl (Zofran) 4 mg PRN Q6HRS PRN IVP NAUSEA/VOMITING Last administered on 08/29/19at 01:38; Start 08/28/19 at 17:15 Atorvastatin Calcium (Lipitor) 20 mg HS PO Last administered on 08/29/19at 20:29; Start 08/28/19 at 21:00 Sucralfate (Carafate) 1 gm BIDAC PO Last administered on 08/29/19at 16:49; Start 08/28/19 at 07:30 Calcium Acetate (Phoslo) 2,001 mg BIDWMEALS PO Last administered on 08/29/19at 17:28; Start 08/28/19 at 18:00 Pantoprazole Sodium (Protonix) 40 mg DAILYAC PO ; Start 08/29/19 at 07:30 Metoprolol Tartrate (Lopressor Vial) 5 mg 1X ONCE IVP Last administered on 08/29/19at 08:24; Start 08/29/19 at 08:30; Stop 08/29/19 at 08:31; Status DC Metoprolol Tartrate (Lopressor Vial) 5 mg STK-MED ONCE IVP ; Start 08/29/19 at 08:22; Stop 08/29/19 at 08:22; Status DC Sodium Chloride 1,000 ml @ 1,000 mls/hr Q1H PRN IV hypotension; Start 08/29/19 at 08:31; Stop 08/29/19 at 14:30; Status DC Acetaminophen (Tylenol) 500 mg 1X PRN PRN PO MILD PAIN / TEMP; Start 08/29/19 at 08:45; Stop 08/30/19 at 08:44 Diphenhydramine HCl (Benadryl) 25 mg 1X PRN PRN IV ITCHING; Start 08/29/19 at 08:45; Stop 08/30/19 at 08:44 Diphenhydramine HCl (Benadryl) 25 mg 1X PRN PRN IV ITCHING; Start 08/29/19 at 08:45; Stop 08/30/19 at 08:44 Sodium Chloride 1,000 ml @ 400 mls/hr Q2H30M PRN IV PATENCY; Start 08/29/19 at 08:31; Stop 08/29/19 at 20:30; Status DC Info (PHARMACY MONITORING -- do not chart) 1 each PRN DAILY PRN MC SEE CO MMENTS; Start 08/29/19 at 08:45 Metoprolol Tartrate (Lopressor Vial) 5 mg 1X ONCE IVP Last administered on 08/29/19at 13:49; Start 08/29/19 at 13:30; Stop 08/29/19 at 13:31; Status DC Active Scripts Active Metoprolol Tartrate 25 Mg Tablet 25 Mg PO BID 30 Days Lipitor (Atorvastatin Calcium) 20 Mg Tablet 20 Mg PO HS Reported Aspir-Low (Aspirin) 81 Mg Tablet. 1 Tab PO DAILY Carafate (Sucralfate) 1 Gm Tablet 1 Tab PO BIDAC 30 Days Coumadin (Warfarin Sodium) 4 Mg Tablet 2 Tab PO DAILY Calcium Acetate 667 Mg Tablet 3 Tab PO BID Omeprazole 20 Mg Tablet. 20 Mg PO DAILY Vitals/I & O Vital Sign - Last 24 Hours 08/29/19 08/29/19 08/29/19 08/29/19 08:05 08:24 13:49 14:28 Temp 98.2 98.2 Pulse 108 126 124 101 Resp 18 B/P (MAP) 116/70 116/70 117/74 95/55 (68) Pulse Ox 98 O2 Delivery Room Air 08/29/19 08/29/19 08/29/19 08/29/19 19:55 20:00 20:34 23:44 Temp 98.0 98.0 98.0 98.0 Pulse 114 114 88 Resp 18 18 B/P (MAP) 92/51 (65) 92/51 106/59 (75) Pulse Ox 96 95 O2 Delivery Room Air Room Air Room Air 08/30/19 02:53 Temp 98.2 98.2 Pulse 92 Resp 20 B/P (MAP) 95/54 (68) Pulse Ox 96 O2 Delivery Room Air Intake and Output 08/29/19 08/29/19 08/30/19 15:00 23:00 07:00 Intake Total 240 ml 1000 ml 800 ml Balance 240 ml 1000 ml 800 ml STACY LEAVITT MD Aug 30, 2019 08:02
[2019-08-30 09:35] LABS: ALBUMIN 3.2 g/dL (3.4-5.0); CALCIUM 8.8 mg/dL (8.5-10.1); CREATININE 4.2 mg/dL (0.6-1.0); GFR 10.1; POTASSIUM 3.7 mmol/L (3.5-5.1)
[2019-08-30 09:44] LABS: PROTHROMBIN TIME PATIENT 15.6 SEC (11.7-14.0)
[2019-08-30] MEDS: METOPROLOL TART IMMED RELEASE 25 MG TABLET. PO SCH (10:12)
[2019-08-30] MEDS: SUCRALFATE 1 GM TABLET. PO SCH (10:12)
[2019-08-30] MEDS: PANTOPRAZOLE 40 MG TABLET.DR. PO SCH (10:12)
--- NOTE | 2019-08-30 10:17 | PDOC ---
SUBJECTIVE ROS stable OBJECTIVE Vital Signs Vital Signs Date Time Temp Pulse Resp B/P (MAP) Pulse Ox O2 Delivery O2 Flow Rate FiO2 08/30/19 10:12 124 106/65 08/30/19 07:00 97.6 20 96 Room Air 97.6 I & 0 Intake and Output 08/30/19 07:00 Intake Total 2040 ml Balance 2040 ml Intake Oral 2040 ml # Voids 3 PHYSICAL EXAM Physical Exam Gen.: no acute distress HEENT: mucous membranes moist, head normocephalic atraumatic Neck: Supple, Lungs: CTA, Non labored CV RRR Abdomen: Soft, nontended Extremities: No cyanosis, LE edema Skin: No obvious rashes or skin breakdown Neuro: Alert and oriented 3 Psych: Normal mood and affect No licea DIAGNOSIS/ASSESSMENT Assessment & Plan ESRD- On HD MWF No indciation for HD today Continue as ordered , Todd Lambert Anemia- Fecal occult blood test positive: had gastritis and esophagitis on EGD in October 2018, she has declined colon oscopy in the past Refusing Colonoscopy defer to GI and Hem/onc Severe coagulopathy with coumadin therapy: INR at 12.8, improved with Vit K and FFP CLL and monoclonal gammopathy undetermined:follows with Dr. Richards as OP Seen by Oncology whil e inpatient AFIB RVR: per cardiology Hx of CVA HTN Hx of CAD. COMMENT/RELEVANT DATA Meds Current Medications Medications (Trade) Dose Ordered Sig/Kiara Start Time Stop Time Status Last Admin Dose Admin Acetaminophen (Tylenol) 500 mg 1X PRN PRN 08/29/19 08:45 08/30/19 08:44 DC Acetaminophen/ Codeine Phosphate (Tylenol #3) 1 tab PRN Q6HRS PRN 08/28/19 17:15 Atorvastatin Calcium (Lipitor) 20 mg HS 08/28/19 21:00 08/29/19 20:29 20 MG Calcium Acetate (Phoslo) 2,001 mg BIDWMEALS 08/28/19 18:00 08/30/19 08:00 2,001 MG Digoxin (Lanoxin) 250 mcg PRN DAILY PRN 08/28/19 15:00 Diltiazem HCl (Cardizem Iv Push) 10 mg 1X ONCE 08/28/19 11:00 08/28/19 11:01 DC 08/28/19 11:43 10 MG Diltiazem HCl 125 mg/Dextrose 125 ml @ 5 mls/hr 1X ONCE 08/28/19 11:30 08/29/19 07:54 DC 08/28/19 11:43 5 MLS/HR Diphenhydramine HCl (Benadryl) 25 mg 1X PRN PRN 08/29/19 08:45 08/30/19 08:44 DC Info (PHARMACY MONITORING -- do not chart) 1 each PRN DAILY PRN 08/29/19 08:45 Metoprolol Tartrate (Lopressor Vial) 5 mg 1X ONCE 08/29/19 13:30 08/29/19 13:31 DC 08/29/19 13:49 5 MG Metoprolol Tartrate (Lopressor) 25 mg BID 08/28/19 15:00 08/30/19 10:12 25 MG Ondansetron HCl (Zofran) 4 mg PRN Q6HRS PRN 08/28/19 17:15 08/29/19 01:38 4 MG Pantoprazole Sodium (Protonix) 40 mg DAILYAC 08/29/19 07:30 08/30/19 10:12 40 MG Phytonadione (Mephyton Oral Soln) 10 mg 1X ONCE 08/28/19 11:30 08/28/19 11:31 DC 08/28/19 11:41 10 MG Sodium Chloride 1,000 ml @ 400 mls/hr Q2H30M PRN 08/29/19 08:31 08/29/19 20:30 DC Sucralfate (Carafate) 1 gm BIDAC 08/28/19 07:30 08/30/19 10:12 1 GM Lab Laboratory Tests Test 08/30/19 09:10 Prothrombin Time 15.6 SEC (11.7-14.0) Prothromb Time International Ratio 1.3 (0.8-1.1) Sodium Level 139 mmol/L (136-145) Potassium Level 3.7 mmol/L (3.5-5.1) Chloride Level 98 mmol/L (98-107) Carbon Dioxide Level 32 mmol/L (21-32) Anion Gap 9 (6-14) Blood Urea Nitrogen 35 mg/dL (7-20) Creatinine 4.2 mg/dL (0.6-1.0) Estimated GFR (Cockcroft-Gault) 10.1 Glucose Level 134 mg/dL (70-99) Calcium Level 8.8 mg/dL (8.5-10.1) Phosphorus Level 3.0 mg/dL (2.6-4.7) Albumin 3.2 g/dL (3.4-5.0) Results All relevant outside records, renal labs, imaging studies, telemetry/EKG's were reviewed. KAREY DUNN MD Aug 30, 2019 10:16
[2019-08-30 11:00] VITALS: BP 97/66
--- NOTE | 2019-08-30 11:22 | NUR ---
SS following up with discharge planning. Discharge order on the chart. Pt has dialysis services at [facility] in [place], ; fax [phone], Tuesday, Tuesday, and Tuesday at 0530am. SS contacted [facility] in [place] and notified them of discharge. SS faxed discharge paperwork to [facility] in [place].
--- NOTE | 2019-08-30 12:16 | PDOC3 ---
Discharge Summary Visit Information Date of Admission: Aug 28, 2019 Date of Discharge: Aug 30, 2019 Admitting Diagnosis: Acute blood loss anemia Final Diagnosis Problems Medical Problems: (1) Anemia in chronic illness Status: Chronic (2) CAD (coronary artery disease) Status: Chronic (3) CLL (chronic lymphocytic leukemia) Status: Chronic (4) Coagulopathy Status: Chronic (5) CVA (cerebral vascular accident) Status: Chronic (6) ESRD (end stage renal disease) Status: Chronic (7) HTN (hypertension) Status: Chronic (8) Symptomatic anemia Status: Acute (9) Warfarin-induced coagulopathy Status: Acute Brief Hospital Course Allergies Allergies Coded Allergies Type Severity Reaction Last Updated Verified ibuprofen Allergy Severe 09/14/16 Yes Vital Signs Vital Signs Date Time Temp Pulse Resp B/P (MAP) Pulse Ox O2 Delivery O2 Flow Rate FiO2 08/30/19 11:00 97.9 99 20 97/66 (76) 96 Room Air 97.9 Lab Results Laboratory Tests Test 08/28/19 19:58 08/29/19 01:45 08/29/19 03:50 08/29/19 09:20 Hemoglobin 6.6 g/dL (12.0-15.5) 7.4 g/dL (12.0-15.5) Prothrombin Time 27.8 SEC (11.7-14.0) Prothromb Time International Ratio 2.6 (0.8-1.1) Stool Occult Blood Positive (NEG) White Blood Count 13.5 x10^3/uL (4.0-11.0) Red Blood Count 2.53 x10^6/uL (3.50-5.70) Hematocrit 23.1 % (36.0-47.0) Mean Corpuscular Volume 91 fL (79-100) Mean Corpuscular Hemoglobin 29 pg (25-35) Mean Corpuscular Hemoglobin Concent 32 g/dL (31-37) Red Cell Distribution Width 16.9 % (11.5-14.5) Platelet Count 122 x10^3/uL (140-400) Neutrophils (%) (Auto) 21 % (31-73) Lymphocytes (%) (Auto) 76 % (24-48) Monocytes (%) (Auto) 2 % (0-9) Eosinophils (%) (Auto) 1 % (0-3) Basophils (%) (Auto) 0 % (0-3) Neutrophils # (Auto) 2.8 x10^3/uL (1.8-7.7) Lymphocytes # (Auto) 10.2 x10^3/uL (1.0-4.8) Monocytes # (Auto) 0.3 x10^3/uL (0.0-1.1) Eosinophils # (Auto) 0.1 x10^3/uL (0.0-0.7) Basophils # (Auto) 0.0 x10^3/uL (0.0-0.2) Absolute Reticulocyte Count 0.079 x10^6/uL (0.020-0.120) Percent Reticulocyte Count 3.1 % (0.5-2.3) Immature Reticulocyte Fraction 0.62 (0.20-0.60) Sodium Level 138 mmol/L (136-145) Potassium Level 5.9 mmol/L (3.5-5.1) Chloride Level 101 mmol/L (98-107) Carbon Dioxide Level 23 mmol/L (21-32) Anion Gap 14 (6-14) Blood Urea Nitrogen 62 mg/dL (7-20) Creatinine 5.8 mg/dL (0.6-1.0) Estimated GFR (Cockcroft-Gault) 7.0 Glucose Level 125 mg/dL (70-99) Calcium Level 8.6 mg/dL (8.5-10.1) Iron Level 97 ug/dL (50-170) Total Iron Binding Capacity 249 ug/dL (250-450) Iron Saturation 39 % (15-34) Ferritin 743 ng/mL (8-252) Haptoglobin 186 mg/dL (34-200) Vitamin B12 Level 443 pg/mL (247-911) Immunoglobulin G 630 mg/dL (700-1600) Immunoglobulin A 58 mg/dL (64-422) Immunoglobulin M 48 mg/dL (26-217) Test 08/30/19 09:10 Prothrombin Time 15.6 SEC (11.7-14.0) Prothromb Time International Ratio 1.3 (0.8-1.1) Sodium Level 139 mmol/L (136-145) Potassium Level 3.7 mmol/L (3.5-5.1) Chloride Level 98 mmol/L (98-107) Carbon Dioxide Level 32 mmol/L (21-32) Anion Gap 9 (6-14) Blood Urea Nitrogen 35 mg/dL (7-20) Creatinine 4.2 mg/dL (0.6-1.0) Estimated GFR (Cockcroft-Gault) 10.1 Glucose Level 134 mg/dL (70-99) Calcium Level 8.8 mg/dL (8.5-10.1) Phosphorus Level 3.0 mg/dL (2.6-4.7) Albumin 3.2 g/dL (3.4-5.0) Laboratory Tests Test 08/30/19 09:10 Prothrombin Time 15.6 SEC (11.7-14.0) Prothromb Time International Ratio 1.3 (0.8-1.1) Sodium Level 139 mmol/L (136-145) Potassium Level 3.7 mmol/L (3.5-5.1) Chloride Level 98 mmol/L (98-107) Carbon Dioxide Level 32 mmol/L (21-32) Anion Gap 9 (6-14) Blood Urea Nitrogen 35 mg/dL (7-20) Creatinine 4.2 mg/dL (0.6-1.0) Estimated GFR (Cockcroft-Gault) 10.1 Glucose Level 134 mg/dL (70-99) Calcium Level 8.8 mg/dL (8.5-10.1) Phosphorus Level 3.0 mg/dL (2.6-4.7) Albumin 3.2 g/dL (3.4-5.0) Brief Hospital Course Ms Wick is an 84-year-old female w/ PMHx GERD, esophagitis, CLL, 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 Richards for history of CLL that has never required treatment with A. fib on Coumadin admitted with elevated INR and anemia with a hemoglobin to 6, fecal occult blood test is positive, she has had an EGD in October 2018 showing esophagitis and gastritis and is on a PPI, she declined colonoscopy at that time, and hemoglobin is up to 7.4 after transfusion. She also had some FFP and vitamin K and last INR was 2.6 down from 12.8. Fecal occult positive. Tolerated dialysis well, shortness of breath improved. Does not wish for colonoscopy. She is asking for discharge. HR in 110s after dialysis. Tolerated PO and IV metoprolol with good improvement in her HR. Has discussed outpatient consideration of watchman. INR 1.3, K 3.7 now. Will f/u outpatient INR. A/P: Acute blood loss anemia - also with anemia of chronic disease requiring transfusion: Hgb 6 Severe coagulopathy with coumadin therapy - INR initially at 12.8. Likely from recent antibiotics with increased coumadin CLL + monoclonal gammopathy AFIB RVR - on cardizem Hx of CVA HTN - controlled but marginal ESRD on HD Severe TR/biatrial enlargement - notable for RVH, EKG no acute changes by comparison CAD - cardiology following Greater than 30 minutes spent on d/c Discharge Information Condition at Discharge: Improved Follow Up: Weeks (1) Disposition/Orders: D/C to Home Scheduled Aspirin (Aspir-Low) 81 Mg Tablet., 1 TAB PO DAILY for heart, #30 Ref 3 (Reported) Entered as Reported by: CHARLI RILEY on 08/28/19 161 Last Taken: Unknown Dose on 08/27/19 Last Action: HELD on 08/28/191712 by CHRISTA CRYSTAL Atorvastatin Calcium (Lipitor) 20 Mg Tablet, 20 MG PO HS for FOR CHOLESTEROL, #30 Ref 1 Prescribed by: SANDER CASTILLO MD on 09/14/16 1233 Last Action: Continued on 08/28/191712 by CHRISTA CRYSTAL Calcium Acetate (Calcium Acetate) 667 Mg Tablet, 3 TAB PO BID for DIALYSIS PATIENTS, (Reported) Entered as Reported by: ALINE HUERTA on 09/12/16 1244 Last Action: Converted on 08/28/191712 by CHRISTA CRYSTAL Metoprolol Tartrate (Metoprolol Tartrate) 25 Mg Tablet, 25 MG PO BID for AFIB for 30 Days, #60 Prescribed by: STACY LEAVITT MD on 08/29/19 1326 Omeprazole (Omeprazole) 20 Mg Tablet., 20 MG PO DAILY, (Reported) Entered as Reported by: ALINE HUERTA on 09/12/16 1242 Last Action: Converted on 08/28/191712 by CHRISTA CRYSTAL Sucralfate (Carafate) 1 Gm Tablet, 1 TAB PO BIDAC for GI for 30 Days, #60 Ref 0 (Reported) Entered as Reported by: CHARLI RILEY on 08/28/191615 Last Taken: Unknown Dose on 08/27/19 Last Action: Continued on 08/28/191712 by CHRISTA CRYSTAL Warfarin Sodium (Coumadin) 4 Mg Tablet, 2 TAB PO DAILY for A-fib, #30 Ref 0 (Reported) Entered as Reported by: Mamadou Urias RN on 05/27/18 2312 Last Action: HELD on 08/28/191712 by CHRISTA CRYSTAL Discontinued Medications Carvedilol (Coreg ) 3.125 Mg Tablet, 3.125 MG PO BIDWMEALS, (Reported) Entered as Reported by: ALINE HUERTA on 09/12/16 1242 Last Action: HELD on 08/28/191712 by CHRISTA CRYSTAL Midodrine Hcl (Midodrine Hcl) 2.5 Mg Tablet, 2.5 MG PO BID for hypotension, (Reported) Entered as Reported by: CHARLI RILEY on 08/28/191614 Last Taken: Unknown Dose on 08/27/19 Last Action: HELD on 08/28/191712 by CHRISTA CRYSTAL Torsemide (Torsemide) 20 Mg Tablet, 2 TAB PO DAILY, #90 Ref 1 (Reported) Entered as Reported by: KINSEY SANCHEZ on 05/27/181915 Last Action: Discontinued on 08/28/191613 by STACY PERDOMO MD Aug 30, 2019 12:16
--- NOTE | 2019-08-30 13:02 | PDOC ---
PROGRESS NOTES Subjective Subjective HPI - f/u of anemia ROS - no CP Objective Objective Vital Signs Date Time Temp Pulse Resp B/P (MAP) Pulse Ox O2 Delivery O2 Flow Rate FiO2 08/30/19 11:00 97.9 99 20 97/66 (76) 96 Room Air 97.9 Intake and Output 08/30/19 07:00 Intake Total 2040 ml Balance 2040 ml Intake Oral 2040 ml # Voids 3 Physical Exam Heart: Normal S1, Normal S2 General: Alert, Oriented X3 Lungs: Clear to auscultation Neuro: Normal speech Psych/Mental Status: Mental status NL Assessment Assessment Problems Medical Problems: (1) Anemia in chronic illness Status: Chronic (2) CAD (coronary artery disease) Status: Chronic (3) CLL (chronic lymphocytic leukemia) Status: Chronic (4) Coagulopathy Status: Chronic (5) CVA (cerebral vascular accident) Status: Chronic (6) ESRD (end stage renal disease) Status: Chronic (7) HTN (hypertension) Status: Chronic (8) Symptomatic anemia Status: Acute (9) Warfarin-induced coagulopathy Status: Acute Assessment and Plan: 84-year-old female with history of CLL and A. fib on Coumadin admitted with anemia and supratherapeutic INR INR: Has had FFP and vitamin K, INR 2.6 on last check, Coumadin is on hold, not actively bleeding though fecal occult blood test positive Fecal occult blood test positive: Would continue PPI, had gastritis and esophagitis on EGD in October, defer consult to GI as needed per primary, she has declined colonoscopy. A. fib: defer to her cardiology team Anemia: Improved after transfusion, will check MGUS labs, Unremarkable ferritin and iron, B12 and haptoglobin CLL: Has not needed treatment renal failure: Continues dialysis Comment Review of Relevant I have reviewed the following items taiwo (where applicable) has been applied. Labs Laboratory Tests Test 08/28/19 19:58 08/29/19 01:45 08/29/19 03:50 08/29/19 09:20 Hemoglobin 6.6 g/dL (12.0-15.5) 7.4 g/dL (12.0-15.5) Prothrombin Time 27.8 SEC (11.7-14.0) Prothromb Time International Ratio 2.6 (0.8-1.1) Stool Occult Blood Positive (NEG) White Blood Count 13.5 x10^3/uL (4.0-11.0) Red Blood Count 2.53 x10^6/uL (3.50-5.70) Hematocrit 23.1 % (36.0-47.0) Mean Corpuscular Volume 91 fL (79-100) Mean Corpuscular Hemoglobin 29 pg (25-35) Mean Corpuscular Hemoglobin Concent 32 g/dL (31-37) Red Cell Distribution Width 16.9 % (11.5-14.5) Platelet Count 122 x10^3/uL (140-400) Neutrophils (%) (Auto) 21 % (31-73) Lymphocytes (%) (Auto) 76 % (24-48) Monocytes (%) (Auto) 2 % (0-9) Eosinophils (%) (Auto) 1 % (0-3) Basophils (%) (Auto) 0 % (0-3) Neutrophils # (Auto) 2.8 x10^3/uL (1.8-7.7) Lymphocytes # (Auto) 10.2 x10^3/uL (1.0-4.8) Monocytes # (Auto) 0.3 x10^3/uL (0.0-1.1) Eosinophils # (Auto) 0.1 x10^3/uL (0.0-0.7) Basophils # (Auto) 0.0 x10^3/uL (0.0-0.2) Absolute Reticulocyte Count 0.079 x10^6/uL (0.020-0.120) Percent Reticulocyte Count 3.1 % (0.5-2.3) Immature Reticulocyte Fraction 0.62 (0.20-0.60) Sodium Level 138 mmol/L (136-145) Potassium Level 5.9 mmol/L (3.5-5.1) Chloride Level 101 mmol/L (98-107) Carbon Dioxide Level 23 mmol/L (21-32) Anion Gap 14 (6-14) Blood Urea Nitrogen 62 mg/dL (7-20) Creatinine 5.8 mg/dL (0.6-1.0) Estimated GFR (Cockcroft-Gault) 7.0 Glucose Level 125 mg/dL (70-99) Calcium Level 8.6 mg/dL (8.5-10.1) Iron Level 97 ug/dL (50-170) Total Iron Binding Capacity 249 ug/dL (250-450) Iron Saturation 39 % (15-34) Ferritin 743 ng/mL (8-252) Haptoglobin 186 mg/dL (34-200) Vitamin B12 Level 443 pg/mL (247-911) Immunoglobulin G 630 mg/dL (700-1600) Immunoglobulin A 58 mg/dL (64-422) Immunoglobulin M 48 mg/dL (26-217) Test 08/30/19 09:10 Prothrombin Time 15.6 SEC (11.7-14.0) Prothromb Time International Ratio 1.3 (0.8-1.1) Sodium Level 139 mmol/L (136-145) Potassium Level 3.7 mmol/L (3.5-5.1) Chloride Level 98 mmol/L (98-107) Carbon Dioxide Level 32 mmol/L (21-32) Anion Gap 9 (6-14) Blood Urea Nitrogen 35 mg/dL (7-20) Creatinine 4.2 mg/dL (0.6-1.0) Estimated GFR (Cockcroft-Gault) 10.1 Glucose Level 134 mg/dL (70-99) Calcium Level 8.8 mg/dL (8.5-10.1) Phosphorus Level 3.0 mg/dL (2.6-4.7) Albumin 3.2 g/dL (3.4-5.0) Laboratory Tests Test 08/30/19 09:10 Prothrombin Time 15.6 SEC (11.7-14.0) Prothromb Time International Ratio 1.3 (0.8-1.1) Sodium Level 139 mmol/L (136-145) Potassium Level 3.7 mmol/L (3.5-5.1) Chloride Level 98 mmol/L (98-107) Carbon Dioxide Level 32 mmol/L (21-32) Anion Gap 9 (6-14) Blood Urea Nitrogen 35 mg/dL (7-20) Creatinine 4.2 mg/dL (0.6-1.0) Estimated GFR (Cockcroft-Gault) 10.1 Glucose Level 134 mg/dL (70-99) Calcium Level 8.8 mg/dL (8.5-10.1) Phosphorus Level 3.0 mg/dL (2.6-4.7) Albumin 3.2 g/dL (3.4-5.0) Medications Current Medications Diltiazem HCl (Cardizem Iv Push) 10 mg 1X ONCE IVP Last administered on 08/28/19at 11:43; Start 08/28/19 at 11:00; Stop 08/28/19 at 11:01; Status DC Phytonadione (Mephyton Oral Soln) 10 mg 1X ONCE PO Last administered on 08/28/19at 11:41; Start 08/28/19 at 11:30; Stop 08/28/19 at 11:31; Status DC Diltiazem HCl 125 mg/Dextrose 125 ml @ 5 mls/hr 1X ONCE IV Last administered on 08/28/19at 11:43; Start 08/28/19 at 11:30; Stop 08/29/19 at 07:54; Status DC Metoprolol Tartrate (Lopressor) 25 mg BID PO Last administered on 08/30/19at 10 :12; Start 08/28/19 at 15:00 Digoxin (Lanoxin) 250 mcg PRN DAILY PRN IV SEE COMMENTS; Start 08/28/19 at 15:00 Acetaminophen (Tylenol) 500 mg PRN Q6HRS PRN PO QURESHI / TEMP; Start 08/28/19 at 17:15 Acetaminophen/ Codeine Phosphate (Tylenol #3) 1 tab PRN Q6HRS PRN PO PAIN; Start 08/28/19 at 17:15 Ondansetron HCl (Zofran) 4 mg PRN Q6HRS PRN IVP NAUSEA/VOMITING Last administered on 08/29/19at 01:38; Start 08/28/19 at 17:15 Atorvastatin Calcium (Lipitor) 20 mg HS PO Last administered on 08/29/19at 20:29; Start 08/28/19 at 21:00 Sucralfate (Carafate) 1 gm BIDAC PO Last administered on 08/30/19at 10:12; Start 08/28/19 at 07:30 Calcium Acetate (Phoslo) 2,001 mg BIDWMEALS PO Last administered on 08/30/19at 08:00; Start 08/28/19 at 18:00 Pantoprazole Sodium (Protonix) 40 mg DAILYAC PO Last administered on 08/30/19at 10:12; Start 08/29/19 at 07:30 Metoprolol Tartrate (Lopressor Vial) 5 mg 1X ONCE IVP Last administered on 08/29/19at 08:24; Start 08/29/19 at 08:30; Stop 08/29/19 at 08:31; Status DC Metoprolol Tartrate (Lopressor Vial) 5 mg STK-MED ONCE IVP ; Start 08/29/19 at 08:22; Stop 08/29/19 at 08:22; Status DC Sodium Chloride 1,000 ml @ 1,000 mls/hr Q1H PRN IV hypotension; Start 08/29/19 at 08:31; Stop 08/29/19 at 14:30; Status DC Acetaminophen (Tylenol) 500 mg 1X PRN PRN PO MILD PAIN / TEMP; Start 08/29/19 at 08:45; Stop 08/30/19 at 08:44; Status DC Diphenhydramine HCl (Benadryl) 25 mg 1X PRN PRN IV ITCHING; Start 08/29/19 at 08:45; Stop 08/30/19 at 08:44; Status DC Diphenhydramine HCl (Benadryl) 25 mg 1X PRN PRN IV ITCHING; Start 08/29/19 at 08:45; Stop 08/30/19 at 08:44; Status DC Sodium Chloride 1,000 ml @ 400 mls/hr Q2H30M PRN IV PATENCY; Start 08/29/19 at 08:31; Stop 08/29/19 at 20:30; Status DC Info (PHARMACY MONITORING -- do not chart) 1 each PRN DAILY PRN MC SEE COMMENTS; Start 08/29/19 at 08:45 Metoprolol Tartrate (Lopressor Vial) 5 mg 1X ONCE IVP Last administered on 08/29/19at 13:49; Start 08/29/19 at 13:30; Stop 08/29/19 at 13:31; Status DC Active Scripts Active Metoprolol Tartrate 25 Mg Tablet 25 Mg PO BID 30 Days Lipitor (Atorvastatin Calcium) 20 Mg Tablet 20 Mg PO HS Reported Aspir-Low (Aspirin) 81 Mg Tablet. 1 Tab PO DAILY Carafate (Sucralfate) 1 Gm Tablet 1 Tab PO BIDAC 30 Days Coumadin (Warfarin Sodium) 4 Mg Tablet 2 Tab PO DAILY Calcium Acetate 667 Mg Tablet 3 Tab PO BID Omeprazole 20 Mg Tablet.dr 20 Mg PO DAILY Vitals/I & O Vital Sign - Last 24 Hours 08/29/19 08/29/19 08/29/19 08/29/19 13:49 14:28 19:55 20:00 Temp 98.2 98.0 98.2 98.0 Pulse 124 101 114 Resp 18 18 B/P (MAP) 117/74 95/55 (68) 92/51 (65) Pulse Ox 98 96 O2 Delivery Room Air Room Air Room Air 08/29/19 08/29/19 08/30/19 08/30/19 20:34 23:44 02:53 07:00 Temp 98.0 98.2 97.6 98.0 98.2 97.6 Pulse 114 88 92 124 Resp 18 20 20 B/P (MAP) 92/51 106/59 (75) 95/54 (68) 106/65 (79) Pulse Ox 95 96 96 O2 Delivery Room Air Room Air Room Air 08/30/19 08/30/19 08/30/19 08:00 10:12 11:00 Temp 97.9 97.9 Pulse 124 99 Resp 20 B/P (MAP) 106/65 97/66 (76) Pulse Ox 96 O2 Delivery Room Air Room Air Intake and Output 08/29/19 08/29/19 08/30/19 15:00 23:00 07:00 Intake Total 240 ml 1000 ml 800 ml Balance 240 ml 1000 ml 800 ml RIDDHI REYES MD Aug 30, 2019 13:02
[2019-08-30 13:14] LABS: KAPPA FREE 174.5 mg/L (3.3-19.4); LAMBDA FREE 54.6 mg/L (5.7-26.3)
[2019-08-30 15:00] VITALS: BP 96/64
--- NOTE | 2019-08-30 15:20 | NUR ---
DISCHARGE INSTRUCTIONS GIVEN, QUESTIONS AND CONCERNS ANSWERED, PATIENT AND FAMILY MEMBER AT THE BEDSIDE VERBALIZED UNDERSTANDING OF DISCHARGE INFORMATION INCLUDING TAKING ALL MEDICATIONS INSTRUCTED AND FOLLOWING UP WITH ALL DOCTORS,ALL PERSONAL BELONGINGS GATHERED BY THE FAMILY AND PLACED IN BAGS FOR DISCHARGE.
--- NOTE | 2019-08-30 15:50 | NUR ---
PATIENT LEAVES THE UNIT PER W/C AND ACCOMPANIED BY THIS POOL PLAYER, EMOTIONAL SUPPORT GIVEN, FOLLOW UP APPOINTMENTS ENCOURAGED.
[2019-08-31 18:13] LABS: ALBUM 3.4 g/dL (2.9-4.4); ALPHA 1 0.3 g/dL (0.0-0.4); ALPHA 2 0.8 g/dL (0.4-1.0); BETA 0.7 g/dL (0.7-1.3); GAMMA 0.6 g/dL (0.4-1.8); PROTEIN TOTAL 5.8 g/dL (6.0-8.5); SPEP AG RATIO 1.4 (0.7-1.7)
[2019-09-03 10:11] LABS: METHYLMALONIC ACID 1042 nmol/L (0-378)
== END 2019-08-30 15:50 | disposition home or self-care (01) | DRG 377 ==
LOC: ER 10:00 → ED HOLD 11:13 → 2 SOUTH 14:02
PROVIDERS: ADMIT Internal Medicine; ATTEND Internal Medicine
PROC: 30233K1 Transfusion of Nonautologous Frozen Plasma into Peripheral Vein, Percutaneous Approach (ICD-10-PCS; principal; 2019-08-28)
PROC: 30233N1 Transfusion of Nonautologous Red Blood Cells into Peripheral Vein, Percutaneous Approach (ICD-10-PCS; 2019-08-28)
PROC: 5A1D70Z Performance of Urinary Filtration, Intermittent, Less than 6 Hours Per Day (ICD-10-PCS; 2019-08-29)
DX: K92.2 Gastrointestinal hemorrhage, unspecified (principal); N18.6 End stage renal disease; D62 Acute posthemorrhagic anemia; D68.32 Hemorrhagic disorder due to extrinsic circulating anticoagulants; C91.10 Chronic lymphocytic leukemia of B-cell type not having achieved remission; I13.2 Hypertensive heart and chronic kidney disease with heart failure and with stage 5 chronic kidney disease, or end stage renal disease; I48.20 Chronic atrial fibrillation, unspecified; Z88.8 Allergy status to other drugs, medicaments and biological substances; Z79.899 Other long term (current) drug therapy; D47.2 Monoclonal gammopathy; D63.8 Anemia in other chronic diseases classified elsewhere; M19.90 Unspecified osteoarthritis, unspecified site; E78.00 Pure hypercholesterolemia, unspecified; E78.5 Hyperlipidemia, unspecified; E87.5 Hyperkalemia; I07.1 Rheumatic tricuspid insufficiency; I25.10 Atherosclerotic heart disease of native coronary artery without angina pectoris; I50.9 Heart failure, unspecified; K21.0 Gastro-esophageal reflux disease with esophagitis; T45.515A Adverse effect of anticoagulants, initial encounter; Z79.01 Long term (current) use of anticoagulants; Z82.49 Family history of ischemic heart disease and other diseases of the circulatory system; Z86.73 Personal history of transient ischemic attack (TIA), and cerebral infarction without residual deficits; Z87.01 Personal history of pneumonia (recurrent); Z90.710 Acquired absence of both cervix and uterus; Z99.2 Dependence on renal dialysis
CPT/HCPCS: 36415; 71046; 80048; 80053; 80069; 82274; 82607; 82728; 82784; 83010; 83520; 83540; 83550; 83921; 84165; 84443; 85007; 85018; 85025; 85045; 85610; 86850; 86900; 86901; 86920; 86927; 93005; 96374; J2405; J3490; P9016; P9017; 99285-25; G0378

== ENCOUNTER → 2020-07-04 | Outpatient (CLI) | payer MEDICARE, OTHER ==
[2019-11-17 11:21] VITALS: BP 120/61
[~2020-07-04] MED LIST changes: +ACET325T9 PO; +ASPI81TA50 PO; -DIGO250T PO; +DIGO250T3 PO; +FOLI1CAP5 PO; +METO25TA4 PO; +MIDO2.5T PO; +SENN1TAB71 PO; +SUCR1TAB35 PO; +WARF7.5T45 PO
--- NOTE | 2020-07-04 11:34 | CARD ---
MR#: [id number] Date of Study: 07/04/2020 Ordering Physician: BRYAN MCGILL, Referring Physician: BRYAN MCGILL, Tech: Domi Almodovar [facility] APPROVED REPORT EXAM: Two-dimensional and M-mode echocardiogram with Doppler and color Doppler. Other Information Quality : Good Rhythm : Atrial Fibrillation INDICATION Tricuspid Regurgitation, Renal Dialysis since 2012 2D DIMENSIONS RVDd4.1 (2.9-3.5cm)Left Atrium(2D)4.4 (1.6-4.0cm) IVSd1.1 (0.7-1.1cm)Aortic Root(2D)3.0 (2.0-3.7cm) LVDd4.3 (3.9-5.9cm)LVOT Diameter2.2 (1.8-2.4cm) PWd0.8 (0.7-1.1cm)LVDs4.0 (2.5-4.0cm) FS (%) 6.6 %SV12.3 ml Aortic Valve AoV Peak Deo.206.8cm/sAoV VTI35.7cm AO Peak GR.17.1mmHgLVOT Peak Deo.94.0cm/s AO Mean GR.8mmHgAVA (VMAX)1.75cm2 SIMEON (VTI)2.00cm2 Tricuspid Valve TR P. [id number]/sRAP [id number] TR Peak Gr.[id number] Pulmonary Vein S1 Qwifwqif25.3cm/sD2 Qkfceedq26.9cm/s LEFT VENTRICLE The left ventricle is normal size. There is normal left ventricular wall thickness. Left ventricle sy stolic function is low normal to mildly decreased. The Ejection Fraction is estimated at 50%. Septal motion consistent with conduction abnormality. RIGHT VENTRICLE The right ventricle is mildly dilated. Systolic function is mildly reduced. ATRIA The left atrium is mildly dilated. The right atrium is mildly dilated. The interatrial septum is inta ct with no evidence for an atrial septal defect or patent foramen ovale as noted on 2-D or Doppler im aging. AORTIC VALVE The aortic valve is calcified but opens well. Doppler and Color Flow revealed trace aortic regurgitat ion. There is no significant aortic valvular stenosis. MITRAL VALVE The mitral valve is mildly thickened. There is no evidence of mitral valve prolapse. There is no mitr al valve stenosis. Doppler and Color-flow revealed mild mitral regurgitation. TRICUSPID VALVE The tricuspid valve is normal in structure and function. Doppler and Color Flow revealed mild to mode rate tricuspid regurgitation. The PA pressure was estimated at 47 mmHg. There is no tricuspid valve s tenosis. PULMONIC VALVE The pulmonary valve is normal in structure and function. Doppler and Color Flow revealed no pulmonic valvular regurgitation. There is no pulmonic valvular stenosis. GREAT VESSELS The aortic root is normal in size. The ascending aorta is mildly dilated 3.5 cm. The IVC is dilated a nd collapses <50% with inspiration. PERICARDIAL EFFUSION There is no evidence of significant pericardial effusion. Critical Notification Critical Value: No <Conclusion> The left ventricle is normal size. Left ventricle systolic function is low normal to mildly decreased. The Ejection Fraction is estimated at 50%. Septal motion consistent with conduction abnormality. Doppler and Color Flow revealed trace aortic regurgitation. There is no significant aortic valvular stenosis. Doppler and Color-flow revealed mild mitral regurgitation. Doppler and Color Flow revealed mild to moderate tricuspid regurgitation. The PA pressure was estimated at 47 mmHg. The ascending aorta is mildly dilated 3.5 cm. Signed by : Michael Carlton MD Electronically Approved : 07/04/2020 11:34:04
== END | disposition home or self-care (01) ==
LOC: ECHO 09:34
PROVIDERS: ATTEND Internal Medicine Cardiovascular Disease
DX: I08.3 Combined rheumatic disorders of mitral, aortic and tricuspid valves (principal)
CPT/HCPCS: 93306